=== PATIENT | female | born 1940 | race Caucasian/White ===

== ENCOUNTER 2016-12-07 09:24 | Emergency (ER) | payer MEDICARE, OTHER ==
--- NOTE | 2016-12-07 11:14 | UC ---
UC General HPI - HPI Summary HPI Summary: pt c/o "plugged ears" X 2 weeks. Pt was seen by PCP last week and began oral cefdinir. c/o loose stools beginning 3- 4 days ago, still taking antibiotic, now c/o dizziness, RUQ abdominal pain, nausea and bilateral "plugged" ears. - History of Current Complaint Chief Complaint: UCEar Stated Complaint: VOMITING/SINUS COMPLAINT Time Seen by Provider: 12/07/16 10:53 Hx Obtained From: Patient Onset/Duration: Gradual Onset, Lasting Days Timing: Constant Onset Severity: Mild Current Severity: Mild Pain Location at: RUQ Character: dull , achy Aggravating: food Associated Signs & Symptoms: Positive: Abdominal Pain, Dizziness, Diarrhea, Decreased Oral Intake, Headache - Allergy/Home Medications Allergies/Adverse Reactions: Allergies Allergy/AdvReac Type Severity Reaction Status Date / Time Aspirin Allergy Intermediate RASH AND Verified 12/07/16 10:42 THROAT TIGHTNESS Codeine Allergy Intermediate Rash, Verified 12/07/16 10:42 throat swells Penicillins Allergy Intermediate Rash, Verified 12/07/16 10:42 throat swells Prednisone Allergy Intermediate RASH,TIGHTNESS Verified 12/07/16 10:42 OF THROAT Sulfa Drugs Allergy Intermediate TIGHNESS Verified 12/07/16 10:42 OF THROAT AND RASH Aripiprazole [From Abilify] Allergy GI Upset Verified 12/07/16 10:42 Oxycodone Allergy THROAT Verified 12/07/16 10:42 TIGHTNESS, RASH Tetracycline Allergy GI Upset Verified 12/07/16 10:42 Valproic Acid [From Depakote] Allergy RASH,THIGHTNESS Verified 12/07/16 10:42 OF THROAT Home Medications: Home Medications Cefdinir 300 mg PO SEE INSTRUCTIONS 12/07/16 [History Confirmed 12/07/16] PMH/Surg Hx/FS Hx/Imm Hx Previously Healthy: No - see pmh Endocrine History Of: Reports: Thyroid Disease Denies: Diabetes Cardiovascular History Of: Reports: Cardiac Disorders - [place] 2007, Hypertension Denies: Pacemaker/ICD Respiratory History Of: Denies: COPD, Asthma GI/ History Of: Denies: Gastroesophageal Reflux, Ulcer, Gastrointestinal Bleed, Gall Bladder Disease, Kidney Stones, Diverticulitis, Renal Disease, Urosepsis Neurological History Of: Denies: TIA, CVA, Dementia, Seizures, Migraine Psychological History Of: Reports: Anxiety - ON MEDICATION, Depression Cancer History Of: Denies: Lung Cancer, Colorectal Cancer, Breast Cancer, Prostate Cancer, Cervical Cancer Other History Of: Anticoagulant Therapy Negative For: HIV, Hepatitis B, Hepatitis C - Surgical History Surgical History: Yes Surgery Procedure, Year, and Place: TONSILECTOMY, APPENDECTOMY,HYSTERECTOMY, HEMMORIDECTOMY,ROTATOR CUFF REPAIR,LT KNEE ARTHROSCOPIC,LSP FUSION 2011, b/l carpal tunnel - Family History Known Family History: Positive: Cardiac Disease, Hypertension, Diabetes, Other - FMH of cholecystitis - Social History Alcohol Use: None Substance Use Type: None Smoking Status (MU): Never Smoked Tobacco Have You Smoked in the Last Year: No Review of Systems Constitutional: Fatigue Skin: Negative Eyes: Negative ENT: Ear Ache - bilateral Respiratory: Negative Cardiovascular: Negative Gastrointestinal: Abdominal Pain, Diarrhea Genitourinary: Negative Motor: Negative Neurovascular: Negative Musculoskeletal: Negative Neurological: Headache Psychological: Negative All Other Systems Reviewed And Are Negative: Yes Physical Exam Triage Information Reviewed: Yes Appearance: Ill-Appearing Vital Signs: Initial Vital Signs Temp 99 F 12/07/16 10:27 Pulse 61 12/07/16 10:27 Resp 18 12/07/16 10:27 BP 148/62 12/07/16 10:27 Pulse Ox 100 12/07/16 10:27 Vital Signs Reviewed: Yes ENT Exam: Other ENT: Positive: Other: - left ear cerumen Neck exam: Normal Respiratory Exam: Normal Cardiovascular Exam: Other Cardiovascular: Positive: Murmur:Sys:Grade _?_/ Abdomen Description: Positive: Other: - Positive Wilson's sign Bowel Sounds: Positive: Present Musculoskeletal Exam: Normal Neurological Exam: Normal Psychological Exam: Normal Skin Exam: Normal Course/Dx - Course Course Of Treatment: I discussed with the pt my concern for C-Difficile and cholecystitis. I discussed the need for further evaluation at the closest emergency department. Pt verbalized understanding and agreed to plan of care. - Differential Dx - Multi-Symptom Provider Diagnoses: abdominal pain. cholecystitis. diarrhea. adverse reaction to medication. cerumen impaction left ear - Physician Notifications Discussed Patient Care With: Latha Howe at [facility]. Time Discussed With Above Provider: 11:34 - Latha Howe accepted pt Instructed by Provider To: Other - pt went by private car. Discharge - Discharge Plan Condition: Stable Disposition: TRANS HIGHER LVL OF CARE FAC Patient Education Materials: Abdominal Pain (ED), Acute Diarrhea (ED)
[2016-12-07] MEDS ORDERED: Ondansetron ODT TAB* 4 MG PO ONE (11:20)
[2016-12-07 11:39] VITALS: BP 142/64
== END 2016-12-07 11:35 | disposition left against medical advice (07) ==
LOC: UCCORT 09:24
DX: K81.9 Cholecystitis, unspecified (principal); H61.22 Impacted cerumen, left ear; R19.7 Diarrhea, unspecified; H92.03 Otalgia, bilateral; F41.9 Anxiety disorder, unspecified; F33.8 Other recurrent depressive disorders; I10 Essential (primary) hypertension; I25.2 Old myocardial infarction; E07.9 Disorder of thyroid, unspecified; R10.11 Right upper quadrant pain; Z88.6 Allergy status to analgesic agent; Z88.5 Allergy status to narcotic agent; Z88.0 Allergy status to penicillin; Z88.2 Allergy status to sulfonamides; Z88.8 Allergy status to other drugs, medicaments and biological substances
CPT/HCPCS: 99214; A9270-GY; G0463

== ENCOUNTER 2017-01-06 11:09 | Emergency (ER) | payer MEDICARE ==
[2017-01-06 11:46] VITALS: BP 158/64
--- NOTE | 2017-01-06 11:58 | UC ---
Respiratory Complaint HPI - HPI Summary HPI Summary: CHEST CONGESTION , PRODUCTIVE COUGH X 5 DAYS + FEVER, CHILLS, NASAL CONGESTION , NO SOB - History of Current Complaint Chief Complaint: UCRespiratory Stated Complaint: UPPER RESPIRATORY Time Seen by Provider: 01/06/17 11:48 Hx Obtained From: Patient Hx Last Menstrual Period: years ago. Onset/Duration: Gradual Onset, Lasting Days - 5, Still Present Timing: Constant Severity Initially: Moderate Severity Currently: Moderate Character: Cough: Productive - YELLOW Aggravating Factors: Allergens, Exertion, Deep Breaths Alleviating Factors: Nothing Associated Signs And Symptoms: Positive: Fever, Chills, URI, Nasal Congestion, Sinus Discomfort. Negative: Wheezing, Hemoptysis, Dizziness, Calf Swelling, Edema - Allergies/Home Medications Allergies/Adverse Reactions: Allergies Allergy/AdvReac Type Severity Reaction Status Date / Time Aspirin Allergy Intermediate RASH AND Verified 01/06/17 11:31 THROAT TIGHTNESS Codeine Allergy Intermediate Rash, Verified 01/06/17 11:31 throat swells Penicillins Allergy Intermediate Rash, Verified 01/06/17 11:31 throat swells Prednisone Allergy Intermediate RASH,TIGHTNESS Verified 01/06/17 11:31 OF THROAT Sulfa Drugs Allergy Intermediate TIGHNESS Verified 01/06/17 11:31 OF THROAT AND RASH Aripiprazole [From Abilify] Allergy GI Upset Verified 01/06/17 11:31 Oxycodone Allergy THROAT Verified 01/06/17 11:31 TIGHTNESS, RASH Tetracycline Allergy GI Upset Verified 01/06/17 11:31 Valproic Acid [From Depakote] Allergy RASH,THIGHTNESS Verified 01/06/17 11:31 OF THROAT Home Medications: Home Medications Dry Eye Otc Drops 01/06/17 [History] Mirabegron (NF) [Myrbetriq (NF)] 25 mg PO DAILY 01/06/17 [History Confirmed ] PMH/Surg Hx/FS Hx/Imm Hx Endocrine History Of: Reports: Thyroid Disease Denies: Diabetes Cardiovascular History Of: Reports: Cardiac Disorders - [place] 2006, Hypertension Denies: Pacemaker/ICD Respiratory History Of: Denies: COPD, Asthma GI/ History Of: Denies: Gastroesophageal Reflux, Ulcer, Gastrointestinal Bleed, Gall Bladder Disease, Kidney Stones, Diverticulitis, Renal Disease, Urosepsis Neurological History Of: Denies: TIA, CVA, Dementia, Seizures, Migraine Psychological History Of: Reports: Anxiety - ON MEDICATION, Depression Cancer History Of: Denies: Lung Cancer, Colorectal Cancer, Breast Cancer, Prostate Cancer, Cervical Cancer Other History Of: Anticoagulant Therapy Negative For: HIV, Hepatitis B, Hepatitis C - Surgical History Surgical History: Yes Surgery Procedure, Year, and Place: TONSILECTOMY, APPENDECTOMY,HYSTERECTOMY, HEMMORIDECTOMY,ROTATOR CUFF REPAIR,LT KNEE ARTHROSCOPIC,LSP FUSION 2011, b/l carpal tunnel - Family History Known Family History: Positive: Cardiac Disease, Hypertension, Diabetes, Other - FMH of cholecystitis - Social History Alcohol Use: None Substance Use Type: None Smoking Status (MU): Never Smoked Tobacco Have You Smoked in the Last Year: No - Immunization History Most Recent Influenza Vaccination: FALL 2015 Review of Systems Constitutional: Fever, Chills, Fatigue Skin: Negative Eyes: Negative ENT: Nasal Discharge Respiratory: Cough Cardiovascular: Negative Gastrointestinal: Negative All Other Systems Reviewed And Are Negative: Yes Physical Exam Triage Information Reviewed: Yes Appearance: Well-Appearing, No Pain Distress, Well-Nourished Vital Signs: Initial Vital Signs Temp 97.9 F 01/06/17 11:39 Pulse 58 01/06/17 11:39 Resp 16 01/06/17 11:39 BP 158/64 01/06/17 11:39 Pulse Ox 98 01/06/17 11:39 Vital Signs Reviewed: Yes Eye Exam: Normal Eyes: Positive: Conjunctiva Clear ENT: Positive: Normal ENT inspection, Pharyngeal erythema, Nasal congestion, Nasal drainage, TMs normal Neck exam: Normal Neck: Positive: Supple, Nontender, No Lymphadenopathy Respiratory: Positive: Chest non-tender, Lungs clear, Normal breath sounds Cardiovascular: Positive: RRR, No Murmur, Pulses Normal Skin Exam: Normal UC Diagnostic Evaluation - Laboratory O2 Sat by Pulse Oximetry: 98 Respiratory Course/Dx - Differential Dx/Diagnosis Provider Diagnoses: BRONCHITIS Discharge - Discharge Plan Condition: Stable Disposition: HOME Prescriptions: DOXYcycline CAP(*) [DOXYcycline 100MG CAP(*)] 100 mg PO BID #14 cap Patient Education Materials: Acute Bronchitis (ED) Referrals: Mila Rangel MD [Primary Care Provider] - 7 Days
== END 2017-01-06 12:09 | disposition home or self-care (01) ==
LOC: UCCORT 11:09
DX: J40 Bronchitis, not specified as acute or chronic (principal); Z88.6 Allergy status to analgesic agent; Z88.5 Allergy status to narcotic agent; Z88.2 Allergy status to sulfonamides; I25.2 Old myocardial infarction; I10 Essential (primary) hypertension; F41.9 Anxiety disorder, unspecified
CPT/HCPCS: 99212; G0463

== ENCOUNTER 2017-05-18 16:55 | Emergency (ER) | payer MEDICARE ==
[2017-05-18 17:06] VITALS: BP 132/59
--- NOTE | 2017-05-18 17:09 | UC ---
Upper Extremity HPI - HPI Summary HPI Summary: 76 YEAR OLD FEMALE PRESENTS WITH COMPLAINS OF RIGHT HAND PAIN. - History of Current Complaint Chief Complaint: UCUpperExtremity Stated Complaint: RIGHT HAND INJURY Time Seen by Provider: 05/18/17 17:04 Hx Last Menstrual Period: years ago. - Allergies/Home Medications Allergies/Adverse Reactions: Allergies Allergy/AdvReac Type Severity Reaction Status Date / Time Aspirin Allergy Intermediate RASH AND Verified 05/18/17 17:06 THROAT TIGHTNESS Codeine Allergy Intermediate Rash, Verified 05/18/17 17:06 throat swells Penicillins Allergy Intermediate Rash, Verified 05/18/17 17:06 throat swells Prednisone Allergy Intermediate RASH,TIGHTNESS Verified 05/18/17 17:06 OF THROAT Sulfa Drugs Allergy Intermediate TIGHNESS Verified 05/18/17 17:06 OF THROAT AND RASH Aripiprazole [From Abilify] Allergy GI Upset Verified 05/18/17 17:06 Oxycodone Allergy THROAT Verified 05/18/17 17:06 TIGHTNESS, RASH Tetracycline Allergy GI Upset Verified 05/18/17 17:06 Valproic Acid [From Depakote] Allergy RASH,THIGHTNESS Verified 05/18/17 17:06 OF THROAT PMH/Surg Hx/FS Hx/Imm Hx Previously Healthy: Yes Other History Of: Anticoagulant Therapy Negative For: HIV, Hepatitis B, Hepatitis C - Surgical History Surgical History: Yes Surgery Procedure, Year, and Place: TONSILECTOMY, APPENDECTOMY,HYSTERECTOMY, HEMMORIDECTOMY,ROTATOR CUFF REPAIR,LT KNEE ARTHROSCOPIC,LSP FUSION 2011, b/l carpal tunnel - Family History Known Family History: Positive: Cardiac Disease, Hypertension, Diabetes, Other - FMH of cholecystitis - Social History Alcohol Use: None Substance Use Type: None Smoking Status (MU): Never Smoked Tobacco Have You Smoked in the Last Year: No - Immunization History Most Recent Influenza Vaccination: FALL 2015 Review of Systems Constitutional: Negative Skin: Negative Eyes: Negative ENT: Negative Respiratory: Negative Cardiovascular: Negative Gastrointestinal: Negative Genitourinary: Negative Motor: Negative Neurovascular: Negative Musculoskeletal: Other: - RIGHT THUMB PAIN RIGHT HAND PAIN Neurological: Negative Psychological: Negative All Other Systems Reviewed And Are Negative: Yes Physical Exam Triage Information Reviewed: Yes Vital Signs: Initial Vital Signs Temp 36.7 C 05/18/17 16:59 Pulse 58 05/18/17 16:59 Resp 17 05/18/17 16:59 BP 132/59 05/18/17 16:59 Pulse Ox 99 05/18/17 16:59 Eye Exam: Normal ENT Exam: Normal Dental Exam: Normal Neck exam: Normal Neck: Positive: 1 Respiratory Exam: Normal Cardiovascular Exam: Normal Abdominal Exam: Normal Musculoskeletal: Positive: Other: - RIGHT THUMB PAIN RIGHT HAND PAIN Neurological Exam: Normal Psychological Exam: Normal Skin Exam: Normal Upper Extremity Course/Dx - Differential Dx/Diagnosis Provider Diagnoses: RIGHT THUMB SPRAIN Discharge - Discharge Plan Condition: Stable Disposition: HOME Prescriptions: Diclofenac 1% GEL (NF) [Voltaren 1% GEL (NF)] 2 gm TOPICAL BID PRN #1 tube PRN Reason: Pain Patient Education Materials: De Quervain Disease (ED) Referrals: Ted Dunaway MD [Medical Doctor] - Mila Rangel MD [Primary Care Provider] -
== END 2017-05-18 17:23 | disposition home or self-care (01) ==
LOC: UCCORT 16:55
DX: S63.601A Unspecified sprain of right thumb, initial encounter (principal); X58.XXXA Exposure to other specified factors, initial encounter; Y93.9 Activity, unspecified; Y92.9 Unspecified place or not applicable; Z88.6 Allergy status to analgesic agent; Z88.5 Allergy status to narcotic agent; Z88.0 Allergy status to penicillin; Z88.2 Allergy status to sulfonamides; Z88.8 Allergy status to other drugs, medicaments and biological substances; Z79.01 Long term (current) use of anticoagulants
CPT/HCPCS: 99212; G0463

== ENCOUNTER 2018-05-06 15:09 | Emergency (ER) | payer MEDICARE ==
--- OUTSIDE RECORDS SUMMARY | 2018-05-06 16:12 | XMS REPORT ---
:1940 External Reference #:[id number] Author Organization [facility] Address [address], [address] [place] [address] Phone [phone] Care Team Providers Name Role Phone Mila Rangel M.D. Care Team Information Emergency Management Specialist Unavailable Mila Rangel M.D. Primary Care Physician Unavailable Payers Type Date Identification Numbers Payment Provider Subscriber Commercial Policy Number: [id number] Today Options Medicare Ana Snider PayID: [id number] [address] [address] [place] [address] Commercial Expires: 2016 Policy Number: [facility] Ana Snider [id number] Medicare PayID: [id number] [address] [address] [place] [address] Medicare Primary Expires: 2016 Policy Number: Medicare Ana Snider [id number] Group Name: Medicare [address] PayID: [id number] [place] [address] Commercial Expires: 2016 Policy Number: DO Not Use-Add Josh Snider [id number] PayID: [id number] [address] [place] [address] Medigap Part B Expires: 2017 Policy Number: [id number] simon Snider PayID: [id number] [address] [place] [address] Problems Date Description Provider Status Onset: 11/28/2014 Essential hypertension Mya Alana, RPAC Active Onset: 11/28/2014 Hyperlipidemia Mya Alana, RPAC Active Onset: 11/28/2014 Hypothyroidism Mya Alana RPAC Active Onset: 11/30/2014 Degenerative joint disease Mya Warner [facility] Active involving multiple joints Onset: 11/28/2014 Coronary arteriosclerosis Mya Warner [facility] Active Onset: 11/28/2014 Anxiety disorder Mya Warner [facility] Active Onset: 04/19/2015 H/O Spinal surgery Zayda Brar MD Active Onset: 04/19/2015 Sjogren's syndrome Zayda Brar MD Active Onset: 12/04/2015 Carpal tunnel syndrome SOFIA Posadas Active Onset: 05/18/2016 Chronic neck pain TONIO Mckinnon Active Note: Document: 05/14/16 - Consult Orthopaedic Onset: 07/16/2016 Fibromyalgia Mila Rangel M.D. Active Onset: 07/16/2016 Urinary incontinence Mila Rangel M.D. Active Onset: 11/17/2017 Urge incontinence of urine Bill Bolaños M.D. Active Onset: 12/15/2017 Nocturia Bill Bolaños M.D. Active Onset: 03/04/2016 Sprain of wrist Trevor Palmer M.D. Resolved Resolved: 04/08/2018 Family History Date Family Member(s) Problem(s) Comments General Breast Cancer on maternal side Father CAD CABG x6 Father due to Cancer () Mother Cancer MOTHER Mother CAD Onset: (age 62 Years) First Brother Myocardial Infarction Onset: (age 61 Years) First Sister Myocardial Infarction CABG x4 First Sister due to Cancer, () Brain Social History Type Date Description Comments Lives With Alone Diet Patient follows no dietary restrictions Occupation Retired Cigarette Use Never Smoked Cigarettes ETOH Use Denies alcohol use Smoking Patient does not smoke Recreational Drug Use Denies Drug Use Daily Caffeine Does Not Consume Caffeine Warp Preparer Name None Allergies, Adverse Reactions, Alerts Date Description Reaction Status Severity Comments Depakote active Codeine active 11/28/2014 Sulfa Antibiotics Urticaria active 11/13/2010 Penicillin active Lyrica active Hydrocodone no effect on pain active 11/13/2010 Prednisone active Aspirin rash active Meloxicam active 11/28/2014 Abilify Urticaria active 11/28/2014 Hydrocortisone active 11/28/2014 Tetracycline Urticaria active 07/17/2010 No Known Drug Allergy inactive Medications Medication Date Status Form Strength Qnty SIG Indications Ordering Provider Naproxen 04/08 Active Tablets 500mg 20tab take one S93.602A Jenniferleigh s tablet Clune [employer] by mouth twice a day Triamcinolone 03/19 Active Ointment 0.1% 15gm apply to S40.861A Mila Rangel Acetonide lesions M.D. on hands twice a day Myrbetriq 12/15 Active Tablets ER 50mg 90tab 1 by R32 Mahmoud 24HR s mouth Mami, M.D. every day Acetaminophen 10/23 Active Tablets 500mg 100ta 2 caps M54.5 Mila Rangel Extra Strength bs by mouth M.D. q8 as needed pain mdd=3g Baclofen 07/23 Active Tablets 10mg 30tab take 1 M62.838 Mila Rangel s tablet M.D. by mouth twice a day as needed Levothyroxine 10/16 Active Tablets 100mcg 90tab take one Mila Rangel Sodium s tablet M.D. by mouth every day Duloxetine HCL 07/[address] 60mg 180ca Take One M79.7 Mila Rangel Part ps Capsule M.D. By Mouth Twice A Day Lisinopril-Manteca 10/01 Active Tablets 20-12.5mg 180ta Take Two Mila Rangel chlorothiazide bs Tablets M.D. By Mouth Every Day Trazodone HCL 03/16 Active Tablets 150mg 90tab Take One F33.2 Mila Rangel s Tablet M.D. By Mouth AT Bedtime Atorvastatin 11/28 Active Tablets 40mg 90tab Take One Mila Rangel Calcium s Tablet M.D. By Mouth Every Day Dry Eye Drops Active 3 drops Unknown / qd Vitamin C Immune Active Chewtabs 1000mg 3 daily Unknown Health (winter only) Multi For Her Active Capsules 1 a day Unknown / Fluticasone Active Suspension 50mcg/Act 16uni [place] 2 Mila Rangel Propionate ts Sprays M.D. Intranas ally Every Day Clopidogrel Active Tablets 75mg 90tab Take One Mila Rangel Bisulfate s Tablet M.D. By Mouth Every Day Gabapentin Active Capsules 300mg 270ca Take One Mila Rangel ps Capsule M.D. By Mouth Three Times A Day Famotidine Active Tablets 20mg 90tab Take One Mila Rangel s Tablet M.D. By Mouth Every Day Ibuprofen 10/23 Hx Capsules 200mg as Mila Rangel, needed M.D. - 10/23 Nitro Stat 12/16 Hx .0.4 i prn Mila Rangel, for M.D. - chest 12/16 pain Oxybutynin 12/16 Hx Tablets 5mg 60tab take one Mila Rangel s tablet M.D. - by mouth 12/16 qd Ondansetron 12/16 Hx Tablets 4mg 30tab 1 by Mila Rangel Dispers s mouth M.D. - every 4 12/30 hour needed Metronidazole 12/16 Hx Tablets 500mg 42tab 1 by Mila Rangel, s mouth M.D. - three 12/30 times a day Flonase 12/16 Hx Suspension 50mcg/Act 16uni 2 sprays Mila Rangel, ts each M.D. - nare 02/06 Lidoderm 12/16 Hx Patches 5% 30uni apply M54.5 Mila Rangel ts patch to M.D. - lower 02/06 every 24 hours, max 1 patch per 24h period Cefdinir 12/02 Hx Capsules 300mg 20cap 1 by J01.90 Kisha Ervin, s mouth PNP-BC, [employer], - twice a Ibclc Myrbetriq 11/19 Hx Tablets ER 25mg 90tab take one Lincoln Khan 24HR s tablet Mami, M.D. - by mouth 12/15 every day Tolterodine 11/04 Hx Caps ER 4mg 30cap 1 by R32 Mila Rangel Tartrate 24HR s mouth M.D. - every Clonazepam 10/16 Hx Tablets 0.25mg take 1 F41.9 Mila Rangel Dispers tab by Ozzy - mouth 10/16 twice a day referenc e #: [id number] Clonazepam 10/16 Hx Tablets 0.5mg take /2 F41.9 by mouth M.D. - Q daily 12/16 Tolterodine 10/16 Hx Caps ER 2mg 30cap 1 tab PO R32 Mila Rangel Tartrate ER 24HR s Q daily M.D. 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 10/16 Referenc e #: [id number] Physical Therapy 04/19 Hx Please Zayda Janelle MD - treat 12/04 neck 2016 pain, right shoulder pain, and upper and lower back pain. Trazodone HCL 03/02 Hx Tablets 100mg 30tab one and 296.33 Jo /2015 s a regalado at Ozzy Becker - bedtime. 03/16 Oxybutynin 01/18 Hx Tablets ER 5mg 90tab take 1 Jamari Keys ER /2014 24HR s tablet MoyDAnette - daily 07/16 Lisinopril/Manteca 11/28 Hx Tablets 20-12.5 90tab 1 by Jo chlorothiazide s mouth Ozzy Becker - every Fluoxetine HCL 11/28 Hx Capsules 20mg 30cap 1 by Rosita /2014 s mouth MD Jo - every Clonazepam 11/28 Hx Tablets 0.5mg 60tab 1 tabs Jo s by mouth Ozzy Becker - twice a needed.. ...Refer ence #: [id number] Lidocaine 11/28 Hx Patches 5% 90uni one ts patch to Ozzy Becker - lower 12/25 every 12 hours as needed Duloxetine HCL 11/28 Hx Caps 30mg 360ca 2 caps Mila Rangel, Part ps by mouth Ozzy - twice a Levothyroxine Hx Tablets 100mcg 1 po qd Unknown Sodium /0000 - 06/11 Clonazepam Hx Tablets 1mg 1 po tid Unknown /0000 prn - 01/22 Vesicare Hx Tablets 5mg 30tab 1 po qd Unknown /0000 s - 01/11 Nitrostat Hx Tablets 0.4mg 25tab 1 tab sl Unknown / Sub s q 5 min - x3 chest 07/16 pain Tramadol HCL Hx Tablets 50mg 1 by Unknown /0000 mouth as - needed 04/19 for pain Q 4 - 6 HRS Methylprednisolo 0000 Hx Tablets 4mg 21tab 1 PO qd Jo ne / s Ozzy Becker - 12/11 Vitamin C 00/00 Hx Unknown /0000 - 12/16 Mucus Relief 00 Hx Tablets 400mg 2 po qd Unknown /0000 - 04/22 Biotene Dry Hx Liquid swish Unknown Mouth /0000 and spit - out four 12/25 times day as needed dry mouth Vitamin E Hx Capsules 400Unit 1 by Unknown /0000 mouth - every Methlprednisolon Hx Take 6 Unknown e /0000 pills in - Am on 12/25 day then 5 pills on day2, etc until gone Baclofen Hx Tablets 10mg take 1/2 Unknown /0000 tab 3 - times a Metaxalone Hx Tablets 800mg 90tab 1 three Mila Rangel, /0000 s times a M.D. - day 07/16 Vitamin D-3 Hx Capsules 1000Unit 1 by Unknown /0000 mouth - every Fluzone Hx Linda 0.5ml Inject Unknown High-Dose /0000 Intramus - cularly 07/16 Tolterodine Hx Caps ER 4mg Take One Unknown Tartrate ER /0000 24HR Capsule - By Mouth 11/19 Day Methylprednisolo Hx Tablets 32mg for use Nirav, ne /0000 w kate Patel MD - 04/08 Medications Administered in Office Medication Date Status Form Strength Qnty SIG Indications Ordering Provider PPD Administered Injection Jeanette Keys M.D. Immunizations CPT Code Status Date Vaccine Lot # [id number] Given 07/02/2016 Influenza Vaccine (Fluzone) Age 3 And Older [id number] Given 08/03/2015 Influenza Vaccine (Fluzone) Age 3 And Older [id number] Given 05/02/2015 Pneumococcal Conjugate Vaccine 13 Valent For [id number] Intramuscular Use 05941 Given 06/23/2011 Pneumovax Injection Vital Signs Date Vital Result Comment 04/22/2018 BP Systolic Sitting Left Arm 124 mmHg BP Diastolic Sitting Left Arm 74 mmHg Body Temperature 100.0 F Heart Rate 72 /min Height 64 inches 5'4" Weight 187.25 lb BMI (Body Mass Index) 32.1 kg/m2 BSA (Body Surface Area) 1.90 m2 [place] body weight in kilograms 54 04/08/2018 BP Systolic Sitting Left Arm 128 mmHg BP Diastolic Sitting Left Arm 76 mmHg Heart Rate 72 /min Respiratory Rate 18 /min Height 63 inches 5'3" Weight 185.00 lb BMI (Body Mass Index) 32.8 kg/m2 BSA (Body Surface Area) 1.87 m2 [place] body weight in kilograms 52 03/19/2018 BP Systolic 136 mmHg BP Diastolic 82 mmHg Body Temperature 98.5 F Heart Rate 72 /min Respiratory Rate 18 /min Weight 184.00 lb O2 % BldC Oximetry 95 % 12/15/2017 BP Systolic 134 mmHg BP Diastolic 67 mmHg 12/15/2017 BP Systolic 167 mmHg BP Diastolic 83 mmHg Body Temperature 98.0 F Heart Rate 57 /min Respiratory Rate 14 /min Height 63 inches 5'3" Weight 184.00 lb BMI (Body Mass Index) 32.6 kg/m2 BSA (Body Surface Area) 1.87 m2 [place] body weight in kilograms 52 O2 % BldC Oximetry 92 % Pain Level 0 11/17/2017 BP Systolic 150 mmHg BP Diastolic 77 mmHg Body Temperature 97.9 F Heart Rate 71 /min Respiratory Rate 17 /min Height 63 inches 5'3" Weight 187.12 lb BMI (Body Mass Index) 33.1 kg/m2 BSA (Body Surface Area) 1.88 m2 [place] body weight in kilograms 52 O2 % BldC Oximetry 94 % Pain Level 10 Hip/leg 10/23/2017 BP Systolic 144 mmHg BP Diastolic 84 mmHg Body Temperature 98.5 F Heart Rate 78 /min Height 63 inches 5'3" Weight 184.00 lb BMI (Body Mass Index) 32.6 kg/m2 BSA (Body Surface Area) 1.87 m2 [place] body weight in kilograms 52 O2 % BldC Oximetry 98 % 09/15/2017 BP Systolic Sitting Left Arm 128 mmHg BP Diastolic Sitting Left Arm 66 mmHg Body Temperature 98.5 F Heart Rate 62 /min Height 63 inches 5'3" Weight 187.12 lb BMI (Body Mass Index) 33.1 kg/m2 BSA (Body Surface Area) 1.88 m2 [place] body weight in kilograms 52 O2 % BldC Oximetry 96 % 07/23/2017 BP Systolic 152 mmHg BP Diastolic 88 mmHg Body Temperature 96.8 F Heart Rate 59 /min Height 63 inches 5'3" Weight 189.00 lb BMI (Body Mass Index) 33.5 kg/m2 BSA (Body Surface Area) 1.89 m2 [place] body weight in kilograms 52 O2 % BldC Oximetry 98 % 04/17/2017 BP Systolic 107 mmHg BP Diastolic 79 mmHg Body Temperature 98.2 F Heart Rate 66 /min Height 63 inches 5'3" Weight 192.00 lb BMI (Body Mass Index) 34.0 kg/m2 BSA (Body Surface Area) 1.90 m2 [place] body weight in kilograms 52 02/06/2017 BP Systolic Sitting Left Arm 120 mmHg BP Diastolic Sitting Left Arm 64 mmHg Body Temperature 99.2 F Heart Rate 63 /min Height 63 inches 5'3" Weight 186.12 lb BMI (Body Mass Index) 33.0 kg/m2 BSA (Body Surface Area) 1.88 m2 O2 % BldC Oximetry 97 % 01/13/2017 BP Systolic Sitting Left Arm 150 mmHg BP Diastolic Sitting Left Arm 92 mmHg Body Temperature 98.7 F Heart Rate 64 /min Respiratory Rate 24 /min Height 63 inches 5'3" Weight 188.25 lb BMI (Body Mass Index) 33.3 kg/m2 BSA (Body Surface Area) 1.88 m2 12/16/2016 BP Systolic Sitting Right Arm 124 mmHg BP Diastolic Sitting Right Arm 76 mmHg Heart Rate 80 /min Height 63 inches 5'3" Weight 187.00 lb BMI (Body Mass Index) 33.1 kg/m2 BSA (Body Surface Area) 1.88 m2 [place] body weight in kilograms 52 12/02/2016 BP Systolic 156 mmHg BP Diastolic 68 mmHg Body Temperature 98.1 F Heart Rate 64 /min Respiratory Rate 18 /min Height 64 inches 5'4" Weight 188.00 lb BMI (Body Mass Index) 32.3 kg/m2 BSA (Body Surface Area) 1.91 m2 10/16/2016 BP Systolic 118 mmHg BP Diastolic 58 mmHg Body Temperature 98.0 F Heart Rate 54 /min Respiratory Rate 20 /min Height 64 inches 5'4" Weight 186.00 lb BMI (Body Mass Index) 31.9 kg/m2 BSA (Body Surface Area) 1.90 m2 [place] body weight in kilograms 54 O2 % BldC Oximetry 97 % 09/24/2016 BP Systolic Sitting Left Arm 118 mmHg BP Diastolic Sitting Left Arm 72 mmHg Heart Rate 68 /min Respiratory Rate 18 /min Height 64 inches 5'4" Weight 186.38 lb BMI (Body Mass Index) 32.0 kg/m2 BSA (Body Surface Area) 1.90 m2 [place] body weight in kilograms 54 08/20/2016 BP Systolic Sitting Left Arm 110 mmHg BP Diastolic Sitting Left Arm 58 mmHg Body Temperature 98.6 F Heart Rate 60 /min Respiratory Rate 16 /min Height 65 inches 5'5" Weight 185.00 lb BMI (Body Mass Index) 30.8 kg/m2 BSA (Body Surface Area) 1.91 m2 07/16/2016 BP Systolic 118 mmHg BP Diastolic 64 mmHg Height 65 inches 5'5" Weight 190.38 lb BMI (Body Mass Index) 31.7 kg/m2 BSA (Body Surface Area) 1.94 m2 [place] body weight in kilograms 57 04/23/2016 BP Systolic 128 mmHg BP Diastolic 74 mmHg Body Temperature 98.4 F Heart Rate 78 /min Respiratory Rate 18 /min Height 64 inches 5'4" Weight 190.00 lb BMI (Body Mass Index) 32.6 kg/m2 BSA (Body Surface Area) 1.91 m2 [place] body weight in kilograms 54 02/20/2016 BP Systolic Sitting Left Arm 122 mmHg BP Diastolic Sitting Left Arm 72 mmHg Heart Rate 76 /min Respiratory Rate 18 /min Height 64 inches 5'4" Weight 190.00 lb BMI (Body Mass Index) 32.6 kg/m2 BSA (Body Surface Area) 1.91 m2 12/31/2015 BP Systolic Sitting Right Arm 120 mmHg BP Diastolic Sitting Right Arm 68 mmHg Heart Rate 64 /min Respiratory Rate 20 /min Height 64 inches 5'4" Weight 180.00 lb BMI (Body Mass Index) 30.9 kg/m2 BSA (Body Surface Area) 1.87 m2 12/26/2015 BP Systolic Sitting Left Arm 130 mmHg BP Diastolic Sitting Left Arm 84 mmHg Height 64 inches 5'4" Weight 185.00 lb BMI (Body Mass Index) 31.8 kg/m2 BSA (Body Surface Area) 1.89 m2 12/12/2015 BP Systolic 128 mmHg BP Diastolic 82 mmHg Heart Rate 60 /min Respiratory Rate 21 /min Weight 182.50 lb 12/04/2015 BP Systolic Sitting Left Arm 126 mmHg BP Diastolic Sitting Left Arm 78 mmHg Heart Rate 66 /min Respiratory Rate 20 /min Height 65 inches 5'5" Weight 183.00 lb BMI (Body Mass Index) 30.4 kg/m2 BSA (Body Surface Area) 1.90 m2 10/22/2015 BP Systolic Sitting Left Arm 138 mmHg BP Diastolic Sitting Left Arm 70 mmHg Heart Rate 78 /min Respiratory Rate 20 /min Height 65 inches 5'5" Weight 176.00 lb BMI (Body Mass Index) 29.3 kg/m2 BSA (Body Surface Area) 1.87 m2 10/01/2015 BP Systolic Sitting Left Arm 138 mmHg BP Diastolic Sitting Left Arm 72 mmHg Heart Rate 64 /min Respiratory Rate 19 /min Height 65 inches 5'5" Weight 176.00 lb BMI (Body Mass Index) 29.3 kg/m2 BSA (Body Surface Area) 1.87 m2 08/03/2015 BP Systolic Sitting Left Arm 122 mmHg BP Diastolic Sitting Left Arm 66 mmHg Heart Rate 60 /min Respiratory Rate 20 /min Height 65 inches 5'5" Weight 175.00 lb BMI (Body Mass Index) 29.1 kg/m2 BSA (Body Surface Area) 1.87 m2 06/06/2015 BP Systolic Sitting Left Arm 122 mmHg BP Diastolic Sitting Left Arm 66 mmHg Heart Rate 68 /min Respiratory Rate 19 /min Height 65 inches 5'5" Weight 180.00 lb BMI (Body Mass Index) 30.0 kg/m2 BSA (Body Surface Area) 1.89 m2 05/02/2015 BP Systolic Sitting Left Arm 112 mmHg BP Diastolic Sitting Left Arm 62 mmHg Heart Rate 62 /min Respiratory Rate 19 /min Height 66 inches 5'6" Weight 181.00 lb BMI (Body Mass Index) 29.2 kg/m2 BSA (Body Surface Area) 1.92 m2 04/19/2015 BP Systolic 118 mmHg BP Diastolic 72 mmHg Body Temperature 98.4 F Height 65 inches 5'5" Weight 186.00 lb BMI (Body Mass Index) 30.9 kg/m2 BSA (Body Surface Area) 1.92 m2 03/16/2015 BP Systolic Sitting Left Arm 128 mmHg BP Diastolic Sitting Left Arm 64 mmHg Heart Rate 60 /min Respiratory Rate 19 /min Height 66 inches 5'6" Weight 188.00 lb BMI (Body Mass Index) 30.3 kg/m2 BSA (Body Surface Area) 1.95 m2 03/02/2015 BP Systolic Sitting Left Arm 112 mmHg BP Diastolic Sitting Left Arm 68 mmHg Heart Rate 60 /min Respiratory Rate 19 /min Height 65 inches 5'5" Weight 189.00 lb BMI (Body Mass Index) 31.4 kg/m2 BSA (Body Surface Area) 1.93 m2 01/18/2015 BP Systolic 128 mmHg BP Diastolic 76 mmHg Body Temperature 97.6 F Weight 196.00 lb 01/10/2015 BP Systolic 118 mmHg BP Diastolic 72 mmHg Body Temperature 98.1 F Weight 194.00 lb 12/04/2014 BP Systolic 162 mmHg BP Diastolic 74 mmHg Height 63.5 inches 5'3.50" Weight 198.00 lb 11/28/2014 BP Systolic 134 mmHg BP Diastolic 82 mmHg Heart Rate 68 /min Height 64 inches 5'4" Weight 195.00 lb 01/22/2011 Height 64 inches 5'4" Weight 218.00 lb 11/13/2010 BP Systolic Sitting Right Arm 128 mmHg BP Diastolic Sitting Right Arm 70 mmHg Heart Rate 63 /min Respiratory Rate 18 /min Weight 214.00 lb 06/21/2010 Height 62 inches 5'2" Weight 182.00 lb BMI (Body Mass Index) 33.3 kg/m2 04/24/2010 Height 64 inches 5'4" Weight 212.00 lb Results Test Date Test Result H/L Range Note Laboratory test finding 12/28/2017 BUN 22 mg/dL High 7-18 1, 2 Creatinine 1.1 mg/dL 0.6-1.3 1, 3 Ua RFX Micro & Culture II 12/15/2017 Urine Color YELLOW Yellow 4 Urine Clarity CLEAR Clear 4 Urine Glucose - Dipstick NEGATIVE mg/dL Negative 4 Urine Bilirubin - Dipstick NEGATIVE Negative 4 Urine Ketone NEGATIVE mg/dL Negative 4 Urine Specific [place] 1.010 1.010-1.030 4 Urine Blood NEGATIVE Negative 4 Urine PH 6.0 Low 6.5-7.5 4 Urine Protein - Dipstick NEGATIVE mg/dL Negative 4 Urine Urobilinogen - Dipstick 0.2 E.U./dL 0.2-1.0 4 Urine Nitrite - Dipstick NEGATIVE Negative 4 Urine Leuk Esterase NEGATIVE Negative 4 Source: URINE, CLEAN CAT <SEE NOTE> 4, 5 LDL Cholesterol Profile 10/23/2017 Cholesterol 153 mg/dL <200 6, 7 Triglycerides 82 mg/dL <150 6, 8 HDL Cholesterol 88 mg/dL >40 6, 9 LDL-Cholesterol 49 mg/dL < 100 6, 10 Reflex add FT3? Y 6 Reflex add FT4? Y 6 TSH Reflex FT4 And/Or FT3 10/23/2017 Thyroid Stim Hormone 1.35 uIU/mL 0.30-4.20 6 Reflex add FT3? Y 6 Reflex add FT4? Y 6 Comprehensive Metabolic Panel 10/23/2017 Glucose 154 mg/dL High 74-106 6 BUN 15 mg/dL 7-18 6 Creatinine 1.1 mg/dL 0.6-1.3 6 Glom Filtration Rate, Estimate 51 mL/min >60 6 If >60 mL/min >60 6, 11 BUN/Creat 13.6 ratio 6 Sodium 134 mmol/L Low 136-145 6 Potassium 3.1 mmol/L Low 3.5-5.1 6 Chloride 100 mmol/L 98-107 6 Carbon Dioxide 25 mmol/L 21-32 6 Anion Gap 9 mEq/L 8-16 6 Calcium 9.4 mg/dL 8.5-10.1 6 Total Protein 7.1 g/dL 6.4-8.2 6 Albumin 3.9 g/dL 3.4-5.0 6 Globulin 3.2 g/dL 1.9-4.3 6 Alb/Glob 1.2 ratio 6 Bilirubin,Total 0.4 mg/dL 0.2-1.0 6 Sgot/Ast 28 U/L 15-37 6 SGPT/Alt 34 U/L 12-78 6 Alkaline Phosphatase 71 U/L 45-117 6 Reflex add FT3? Y 6 Reflex add FT4? Y 6 LDL Cholesterol Profile 06/06/2017 Cholesterol 149 mg/dL <200 12, 13 Triglycerides 162 mg/dL High <150 12, 14 HDL Cholesterol 53 mg/dL >40 12, 15 LDL-Cholesterol 64 mg/dL < 100 12, 16 Laboratory test finding 06/06/2017 Troponin-I < 0.015 ng/mL 12, 17 Glycohemoglobin A1c 06/06/2017 Glycohemoglobin (A1c) 6.0 % 4.2-6.3 12, 18 eAG 126 mg/dL 12 Laboratory test finding 06/05/2017 Troponin-I 0.021 ng/mL 12, 19 CBS W/Automated Diff 06/05/2017 White Blood Count 6.9 K/uL 3.1-10.7 20 Red Blood Count 3.99 M/uL 3.90-5.40 20 Hemoglobin 12.4 gm/dL 11.6-15.8 20 Hematocrit 35.3 % Low 36.0-46.1 20 Mean Cell Volume 88.5 fl 80.9-99.0 20 Mean Corpuscular HGB 31.1 pg 25.9-32.7 20 Mean Corpuscular HGB Conc 35.1 g/dL High 30.8-34.3 20 Platelet Count 274 K/uL 150-400 20 Red Cell Distri Width SD 41.3 fl 3-47 20 Red Cell Distri Width %CV 13.1 % 11.7-14.4 20 Mean Platelet Volume 8.8 fL Low 8.9-12.4 20 Neut% 62.5 % 40.4-72.8 20 Lymph % 25.5 % 20.0-42.0 20 [place] % 8.1 % 4.3-13.2 20 Eo% 3.5 % 0.0-6.6 20 Bas% 0.4 % 0.0-1.1 20 Neut# 4.32 K/uL 1.8-7.0 20 Lymph # 1.76 K/uL 1.0-4.0 20 [place] # 0.56 K/uL 0.3-0.9 20 Eos # 0.24 K/uL 0.0-0.5 20 Baso # 0.03 K/uL 0.0-0.1 20 TSH Reflex FT4 And/Or FT3 01/13/2017 Thyroid Stim Hormone 3.01 uIU/mL 0.30-4.20 21 Reflex add FT3? Y 21 Reflex add FT4? Y 21 Laboratory test 12/16/2016 [place] Antibodies, >300.0 AU/mL Immune >29.9 22, 23 finding Igg Rubella Igg 12/16/2016 Rubella IgG Antibody Reactive Reactive 22 Antibody Rubella IgG Iu/ml 317.7 IU/mL >=10.0 22, 24 Basic Metabolic Panel 2016 Glucose 103 mg/dL 74-106 25 BUN 13 mg/dL 7-18 25 Creatinine 1.1 mg/dL 0.6-1.3 25 Glom Filtration Rate, Estimate 51 mL/min >60 25 If >60 mL/min >60 25, 26 BUN/Creat 11.8 ratio 25 Sodium 141 mmol/L 136-145 25 Potassium 4.0 mmol/L 3.5-5.1 25 Chloride 111 mmol/L High 98-107 25 Carbon Dioxide 18 mmol/L Low 21-32 25 Anion Gap 12 mEq/L 8-16 25 Calcium 8.9 mg/dL 8.5-10.1 25 CBS W/Automated Diff 2016 White Blood Count 9.3 K/uL 3.1-10.7 25 Red Blood Count 4.41 M/uL 3.90-5.40 25 Hemoglobin 13.3 gm/dL 11.6-15.8 25 Hematocrit 39.3 % 36.0-46.1 25 Mean Cell Volume 89.1 fl 80.9-99.0 25 Mean Corpuscular HGB 30.2 pg 25.9-32.7 25 Mean Corpuscular HGB Conc 33.8 g/dL 30.8-34.3 25 Platelet Count 253 K/uL 150-400 25 Red Cell Distri Width SD 45.2 fl 3-47 25 Red Cell Distri Width %CV 14.2 % 11.7-14.4 25 Mean Platelet Volume 9.2 fL 8.9-12.4 25 Neut% 72.8 % 40.4-72.8 25 Lymph % 18.2 % Low 20.0-42.0 25 [place] % 7.4 % 4.3-13.2 25 Eo% 1.4 % 0.0-6.6 25 Bas% 0.2 % 0.0-1.1 25 Neut# 6.78 K/uL 1.8-7.0 25 Lymph # 1.70 K/uL 1.0-4.0 25 [place] # 0.69 K/uL 0.3-0.9 25 Eos # 0.13 K/uL 0.0-0.5 25 Baso # 0.02 K/uL 0.0-0.1 25 Basic Metabolic Panel 12/08/2016 Glucose 110 mg/dL High 74-106 25 BUN 11 mg/dL 7-18 25 Creatinine 0.9 mg/dL 0.6-1.3 25 Glom Filtration Rate, Estimate >60 mL/min >60 25 If >60 mL/min >60 25, 27 BUN/Creat 12.2 ratio 25 Sodium 135 mmol/L Low 136-145 25 Potassium 4.1 mmol/L 3.5-5.1 25 Chloride 105 mmol/L 98-107 25 Carbon Dioxide 21 mmol/L 21-32 25 Anion Gap 9 mEq/L 8-16 25 Calcium 8.4 mg/dL Low 8.5-10.1 25 CBS W/Automated Diff 12/08/2016 White Blood Count 16.4 K/uL High 3.1-10.7 25 Red Blood Count 4.38 M/uL 3.90-5.40 25 Hemoglobin 13.4 gm/dL 11.6-15.8 25 Hematocrit 38.4 % 36.0-46.1 25 Mean Cell Volume 87.7 fl 80.9-99.0 25 Mean Corpuscular HGB 30.6 pg 25.9-32.7 25 Mean Corpuscular HGB Conc 34.9 g/dL High 30.8-34.3 25 Platelet Count 222 K/uL 150-400 25 Red Cell Distri Width SD 43.8 fl 3-47 25 Red Cell Distri Width %CV 13.9 % 11.7-14.4 25 Mean Platelet Volume 9.0 fL 8.9-12.4 25 Neut% 85.5 % High 40.4-72.8 25 Lymph % 7.3 % Low 20.0-42.0 25 [place] % 6.9 % 4.3-13.2 25 Eo% 0.2 % 0.0-6.6 25 Bas% 0.1 % 0.0-1.1 25 Neut# 14.05 K/uL High 1.8-7.0 25 Lymph # 1.20 K/uL 1.0-4.0 25 [place] # 1.14 K/uL High 0.3-0.9 25 Eos # 0.04 K/uL 0.0-0.5 25 Baso # 0.01 K/uL 0.0-0.1 25 Laboratory test 12/07/2016 Magnesium 1.9 mg/dL 1.8-2.4 25 finding Laboratory test 12/07/2016 C. Difficile Toxin NEGATIVE FOR C. 28, 29 finding A/B <SEE NOTE> Ua Routine 12/07/2016 Urine Color YELLOW Yellow 28 Urine Clarity CLEAR Clear 28 Urine Glucose - Dipstick NEGATIVE mg/dL Negative 28 Urine Bilirubin - Dipstick NEGATIVE Negative 28 Urine Ketone 15 mg/dL High Negative 28 Urine Specific [place] 1.025 1.010-1.030 28 Urine Blood SMALL Negative 28 Urine PH 6.0 Low 6.5-7.5 28 Urine Protein - Dipstick 30 mg/dL High Negative 28 Urine Urobilinogen - Dipstick 0.2 E.U./dL 0.2-1.0 28 Urine Nitrite - Dipstick NEGATIVE Negative 28 Urine Leuk Esterase NEGATIVE Negative 28 Urine RBC 2-5 rbc/hpf 0-2 28 Urine WBC 0-2 wbc/hpf 0-7 28 Urine Epithelial Cells MANY /lpf None Seen 28, 30 Urine Bacteria VERY FEW None Seen 28 Urine Coarse Granular Cast 0-2 #/lpf None Seen 28 Urine Mucus LARGE None Seen 28 Urine Amorph Sediment SMALL Negative 28 Source: URINE, CLEAN CAT <SEE NOTE> 28, 31 Aot Request 12/07/2016 Aot Request Test(s) added 32, 33 Tests to be added: magnesium 32 Basic Metabolic Panel 12/07/2016 Glucose 145 mg/dL High 74-106 32 BUN 13 mg/dL 7-18 32 Creatinine 1.0 mg/dL 0.6-1.3 32 Glom Filtration Rate, Estimate 57 mL/min >60 32 If >60 mL/min >60 32, 34 BUN/Creat 13.0 ratio 32 Sodium 130 mmol/L Low 136-145 32 Potassium 3.3 mmol/L Low 3.5-5.1 32 Chloride 97 mmol/L Low 98-107 32 Carbon Dioxide 23 mmol/L 21-32 32 Anion Gap 10 mEq/L 8-16 32 Calcium 8.2 mg/dL Low 8.5-10.1 32 Urine Culture 11/14/2016 Urine Culture NO GROWTH: FINAL <SEE NOTE> 35, 36 Free T3 10/16/2016 Free T3 2.45 pg/mL 2.18-3.98 Reflex add FT3? Y Reflex add FT4? Y Free T4 10/16/2016 Free T4 1.32 ng/dL 0.76-1.46 Reflex add FT3? Y Reflex add FT4? Y TSH Reflex FT4 And/Or FT3 10/16/2016 Thyroid Stim Hormone 0.16 uIU/mL Low 0.30-4.20 Reflex add FT3? Y Reflex add FT4? Y LDL Cholesterol Profile 10/16/2016 Cholesterol 156 mg/dL <200 37 Triglycerides 106 mg/dL <150 38 HDL Cholesterol 57 mg/dL >40 39 LDL-Cholesterol 78 mg/dL < 100 40 Reflex add FT3? Y Reflex add FT4? Y Comprehensive Metabolic Panel 10/16/2016 Glucose 92 mg/dL 74-106 BUN 20 mg/dL High 7-18 Creatinine 1.1 mg/dL 0.6-1.3 Glom Filtration Rate, Estimate 51 mL/min >60 If >60 mL/min >60 41 BUN/Creat 18.1 ratio Sodium 140 mmol/L 136-145 Potassium 3.5 mmol/L 3.5-5.1 Chloride 104 mmol/L 98-107 Carbon Dioxide 27 mmol/L 21-32 Anion Gap 9 mEq/L 8-16 Calcium 9.2 mg/dL 8.5-10.1 Total Protein 7.1 g/dL 6.4-8.2 Albumin 3.7 g/dL 3.4-5.0 Globulin 3.4 g/dL 1.9-4.3 Alb/Glob 1.1 ratio Bilirubin,Total 0.5 mg/dL 0.2-1.0 Sgot/Ast 19 U/L 15-37 SGPT/Alt 34 U/L 12-78 Alkaline Phosphatase 77 U/L 45-117 Reflex add FT3? Y Reflex add FT4? Y Laboratory test finding 09/07/2016 Urine Glucose Negative Negative Urine Culture SEE RESULT BELOW 42 [id number]-[id number] 08/21/2016 Nitrofurantoin <=16 Trimethoprim/Sulfamethoxazole <=20 Ampicillin <=2 Cefazolin <=4 Ampicillin/Sulbactam <=2 Ciprofloxacin <=0.25 Piperacillin/Tazobactam <=4 Ceftazidime <=1 Ceftriaxone <=1 Cefepime <=1 Levofloxacin <=0.12 Imipenem <=0.25 Gentamicin <=1 Tobramycin <=1 Urine Culture 08/20/2016 Urine Culture ESCHERICHIA COLI 43, 44 Quantity > 100,000 CFU/mL 43, 45 Urine Culture URETHRAL ALEXSANDRA 43 Quantity 10,000 - 50,000 <SEE NOTE> 43, 46 TSH Reflex FT4 And/Or FT3 07/16/2016 Thyroid Stim Hormone 0.08 uIU/mL Low 0.30-4.20 @[facility] Pat Id: [id number] @[facility] Req #: [id number] Reflex add FT3? Y Reflex add FT4? Y Free T3 07/16/2016 Free T3 2.52 pg/mL 2.18-3.98 @[facility] Pat Id: [id number] @[facility] Req #: [id number] Reflex add FT3? Y Reflex add FT4? Y Free T4 07/16/2016 Free T4 1.28 ng/dL 0.76-1.46 @[facility] Pat Id: [id number] @[facility] Req #: [id number] Reflex add FT3? Y Reflex add FT4? Y Liver Function Tests 04/23/2016 Total Protein 7.1 g/dL 6.4-8.2 Albumin 4.0 g/dL 3.4-5.0 Globulin 3.1 g/dL 1.9-4.3 Alb/Glob 1.3 ratio Bilirubin,Total 0.5 mg/dL 0.2-1.0 Bilirubin,Direct 0.1 mg/dL 0.0-0.2 Bilirubin,Indirect 0.4 mg/dL 0.0-0.9 Sgot/Ast 18 U/L 15-37 SGPT/Alt 29 U/L 12-78 Alkaline Phosphatase 73 U/L 45-117 Laboratory test finding 04/23/2016 Thyroid Stim Hormone 0.11 uIU/mL Low 0.30-4.20 Basic Metabolic Panel 04/23/2016 Glucose 83 mg/dL 74-106 BUN 17 mg/dL 7-18 Creatinine 1.0 mg/dL 0.6-1.3 Glom Filtration Rate, Estimate 57 mL/min >60 If >60 mL/min >60 47 BUN/Creat 17.0 ratio Sodium 140 mmol/L 136-145 Potassium 3.2 mmol/L Low 3.5-5.1 Chloride 102 mmol/L 98-107 Carbon Dioxide 29 mmol/L 21-32 Anion Gap 9 mEq/L 8-16 Calcium 9.5 mg/dL 8.5-10.1 LDL Cholesterol Profile 04/23/2016 Cholesterol 176 mg/dL 150-200 48 Triglycerides 129 mg/dL 50-150 49 HDL Cholesterol 61 mg/dL 60-150 50 LDL-Cholesterol 89 mg/dL 75-100 51 Basic Metabolic Panel 01/02/2016 Glucose 109 mg/dL High 74-106 BUN 17 mg/dL 7-18 Creatinine 0.9 mg/dL 0.6-1.3 Glom Filtration Rate, Estimate >60 mL/min >60 If >60 mL/min >60 52 BUN/Creat 18.8 ratio Sodium 138 mmol/L 136-145 Potassium 3.6 mmol/L 3.5-5.1 Chloride 102 mmol/L 98-107 Carbon Dioxide 26 mmol/L 21-32 Anion Gap 10 mEq/L 8-16 Calcium 9.7 mg/dL 8.5-10.1 Xray 10/12/2015 Chest PA & Lat 2 VWS <pending> Xray 10/12/2015 Shoulder Right 2+VWS <pending> Laboratory test finding 10/10/2015 Blood Urea Nitrogen 19 mg/dL 6-24 Creatinine 10/10/2015 Creatinine 0.98 mg/dL High 0.51-0.95 Egfr Non- 55.5 >60 Egfr 71.3 >60 53 Laboratory test finding 10/01/2015 Thyroid Stim Hormone 0.05 uIU/mL Low 0.36-3.74 54 Laboratory test finding 08/03/2015 Thyroid Stim Hormone < 0.01 uIU/mL Low 0.36-3.74 55 Basic Metabolic Panel 06/06/2015 Glucose 105 mg/dL 74-106 BUN 19 mg/dL High 7-18 Creatinine 1.1 mg/dL 0.6-1.3 Glom Filtration Rate, Estimate 52 mL/min >60 If >60 mL/min >60 56 BUN/Creat 17.2 ratio Sodium 135 mmol/L Low 136-145 Potassium 3.5 mmol/L 3.5-5.1 Chloride 100 mmol/L 98-107 Carbon Dioxide 28 mmol/L 21-32 Anion Gap 7 mEq/L Low 8-16 Calcium 9.5 mg/dL 8.5-10.1 Laboratory test finding 06/06/2015 Thyroid Stim Hormone 4.07 uIU/mL High 0.36-3.74 LDL Cholesterol Profile 06/06/2015 Cholesterol 154 mg/dL 150-200 57 Triglycerides 170 mg/dL High 50-150 58 HDL Cholesterol 56 mg/dL Low 60-150 59 LDL-Cholesterol 64 mg/dL Low 75-100 60 Liver Function Tests 06/06/2015 Total Protein 7.4 g/dL 6.4-8.2 Albumin 4.0 g/dL 3.4-5.0 Globulin 3.4 g/dL 1.9-4.3 Alb/Glob 1.2 ratio Bilirubin,Total 0.4 mg/dL 0.2-1.0 Bilirubin,Direct < 0.1 mg/dL 0.0-0.2 Bilirubin,Indirect 0.3 mg/dL 0.0-0.9 Sgot/Ast 31 U/L 15-37 SGPT/Alt 56 U/L 12-78 Alkaline Phosphatase 92 U/L 45-117 Laboratory test finding 01/12/2015 Urine Culture See Note 61 Laboratory test finding 12/11/2014 Bas% 0.3 % 0.0-1.1 Baso # 0.02 K/uL 0.0-0.1 Eo% 2.7 % 0.0-6.6 Eos # 0.17 K/uL 0.0-0.5 Hematocrit 39.0 % 36.0-46.1 Hemoglobin 13.2 gm/dL 11.6-15.8 Lymph # 1.44 K/uL Low 1.8-7.0 Lymph % 23.0 % 17.0-46.1 Mean Cell Volume 92.6 fl 80.9-99.0 Mean Corpuscular HGB 31.4 pg 25.9-32.7 Mean Corpuscular HGB Conc 33.8 g/dL 30.8-34.3 Mean Platelet Volume 9.2 fL 8.9-12.4 [place] # 0.52 K/uL 0.3-0.9 [place] % 8.3 % 4.3-13.2 Neut# 4.10 K/uL 1.0-7.0 Neut% 65.7 % 40.4-72.8 Platelet Count 233 K/uL 155-360 Red Blood Count 4.21 M/uL 3.90-5.40 Red Cell Distri Width %CV 13.7 % 11.7-14.4 Red Cell Distri Width SD 45.1 fl 3-47 Troponin-I 0.02 ng/mL 62 White Blood Count 6.3 K/uL 3.1-10.7 Comprehensive Metabolic Panel 12/11/2014 Alb/Glob 1.7 ratio Albumin 3.6 g/dL 3.4-5.0 Alkaline Phosphatase 100 U/L 45-117 Anion Gap 3 mEq/L Low 8-16 BUN 15 mg/dL 7-18 BUN/Creat 12.5 ratio Bilirubin,Total 0.5 mg/dL 0.2-1.0 Calcium 9.1 mg/dL 8.5-10.1 Carbon Dioxide 33 mmol/L High 21-32 Chloride 101 mmol/L 98-107 Creatinine 1.2 mg/dL 0.6-1.3 Globulin 2.1 g/dL 1.9-4.3 Glom Filtration Rate, Estimate 47 mL/min >60 Glucose 87 mg/dL 74-106 If 56 mL/min >60 63 Potassium 3.4 mmol/L Low 3.5-5.1 SGPT/Alt 30 U/L 12-78 Sgot/Ast 25 U/L 15-37 Sodium 137 mmol/L 136-145 Total Protein 5.7 g/dL Low 6.4-8.2 Laboratory test finding 11/28/2014 Antinuclear Antibodies, Ifa Negative . 64 C-Reactive Protein,Quant 3.5 mg/L <3.0 Rheumatoid Factor Screen < 10.0 Iu/ml 0.0-15.0 Sedimentation Rate 19 mm/hr 0-30 TSH Reflex FT4 and/or FT3 2.29 uIU/mL 0.36-3.74 65 Uric Acid 4.5 mg/dL 2.6-6.0 CBS W/Automated Diff 11/28/2014 Bas% 0.3 % 0.0-1.1 Baso # 0.02 K/uL 0.0-0.1 Eo% 1.5 % 0.0-6.6 Eos # 0.11 K/uL 0.0-0.5 Hematocrit 42.7 % 36.0-46.1 Hemoglobin 14.0 gm/dL 11.6-15.8 Lymph # 1.95 K/uL 0.8-3.4 Lymph % 26.8 % 17.0-46.1 Mean Cell Volume 93.8 fl 80.9-99.0 Mean Corpuscular HGB 30.8 pg 25.9-32.7 Mean Corpuscular HGB Conc 32.8 g/dL 30.8-34.3 Mean Platelet Volume 9.7 fL 8.9-12.4 [place] # 0.53 K/uL 0.3-0.9 [place] % 7.3 % 4.3-13.2 Neut# 4.66 K/uL 1.0-7.0 Neut% 64.1 % 40.4-72.8 Platelet Count 303 K/uL 155-360 Red Blood Count 4.55 M/uL 3.90-5.40 Red Cell Distri Width %CV 14.2 % 11.7-14.4 Red Cell Distri Width SD 47.4 fl High 3-47 White Blood Count 7.3 K/uL 3.1-10.7 Comprehensive Metabolic Panel 11/28/2014 Alb/Glob 1.1 ratio Albumin 3.8 g/dL 3.4-5.0 Alkaline Phosphatase 75 U/L 45-117 Anion Gap 9 mEq/L 8-16 BUN 19 mg/dL High 7-18 BUN/Creat 14.6 ratio Bilirubin,Total 0.3 mg/dL 0.2-1.0 Calcium 9.0 mg/dL 8.5-10.1 Carbon Dioxide 29 mmol/L 21-32 Chloride 106 mmol/L 98-107 Creatinine 1.3 mg/dL 0.6-1.3 Globulin 3.4 g/dL 1.9-4.3 Glom Filtration Rate, Estimate 43 mL/min >60 Glucose 89 mg/dL 74-106 If 52 mL/min >60 66 Potassium 4.1 mmol/L 3.5-5.1 SGPT/Alt 30 U/L 12-78 Sgot/Ast 19 U/L 15-37 Sodium 140 mmol/L 136-145 Total Protein 7.2 g/dL 6.4-8.2 LDL Cholesterol Profile 11/28/2014 Cholesterol 176 mg/dL < 200 67 HDL Cholesterol 59 mg/dL > 40 68 LDL-Cholesterol 81 mg/dL < 100 69 Triglycerides 180 mg/dL < 150 70 1 Z01.[address] NIRAV PATEL AT [phone] NIRAV PATEL AT [phone] 4 N39.41 5 URINE, CLEAN CATCH 6 I10 E78.5 7 Reference Guidelines*: Desirable: ........... < 200 mg/dL Borderline High: ..... 200-239 mg/dL High: ................ >=240 mg/dL * The National Cholesterol Education Program (NCEP) 8 Reference Guidelines*: Normal: ............. < 150 mg/dL Borderline High: .... 150-199 mg/dL High: ............... 200-499 mg/dL Very High: .......... > 500 mg/dL * Source: National Cholesterol Education Program (NCEP) 9 Reference Guidelines*: Low HDL: ..... < 40 mg/dL Normal: ..... 40-60 mg/dL Desirable: ... > 60 mg/dL *The National Cholesterol Education Program(NCEP) 10 Reference Guidelines*: Optimal:........... <100 mg/dL Near Optimal....... 100-129 mg/dL Borderline High.... 130-159 mg/dL High............... 160-189 mg/dL Very High.......... >=190 mg/dL * Source: National Cholesterol Education Program (NCEP) 11 Note: Persistent reduction for 3 months or more in an eGFR <60 mL/min/1.73 m2 defines CKD. Patients with eGFR values >/=60 mL/min/1.73 m2 may also have CKD if evidence of persistent proteinuria is present. The original MDRD equation for estimated GFR is not valid for patients less than 18 years of age. Additional information may be found at www.kdoqi.org. 12 CHEST PAIN 13 Reference Guidelines*: Desirable: ........... < 200 mg/dL Borderline High: ..... 200-239 mg/dL High: ................ >=240 mg/dL * The National Cholesterol Education Program (NCEP) 14 Reference Guidelines*: Normal: ............. < 150 mg/dL Borderline High: .... 150-199 mg/dL High: ............... 200-499 mg/dL Very High: .......... > 500 mg/dL * Source: National Cholesterol Education Program (NCEP) 15 Reference Guidelines*: Low HDL: ..... < 40 mg/dL Normal: ..... 40-60 mg/dL Desirable: ... > 60 mg/dL *The National Cholesterol Education Program(NCEP) 16 Reference Guidelines*: Optimal:........... <100 mg/dL Near Optimal....... 100-129 mg/dL Borderline High.... 130-159 mg/dL High............... 160-189 mg/dL Very High.......... >=190 mg/dL * Source: National Cholesterol Education Program (NCEP) 17 0.0 - 0.045 ng/mL: Normal 0.046 - 0.5 ng/mL: Suggestive 0.6 - 1.5 ng/mL: Consistent 18 Elevated levels of HbA1c suggest the need for more aggressive treatment of glycemia. The [place] [employer] recommends that a primary goal of therapy should be a HbA1c of <7% and that physicians should re-evaluate the treatment regimen in patients with HbA1c values consistently >8%. 19 0.0 - 0.045 ng/mL: Normal 0.046 - 0.5 ng/mL: Suggestive 0.6 - 1.5 ng/mL: Consistent 20 CP 21 E03.9 22 Z02.1 23 Negative <25.0 Equivocal 25.0 - 29.9 Positive >29.9 Presence of antibodies to Rubeola is presumptive evidence of immunity except when acute infection is suspected. Performed at: - [facility] [address] [id number] Furnace Install[employer] Helper: La Marquez MD, Phone: [phone] 24 Values >=10.0 IU/mL are positive for IgG antibodies to rubella virus and are considered IMMUNE. 25 DIARRHEA, ELECTROLYTE ABNORMALITIES 26 Note: Persistent reduction for 3 months or more in an eGFR <60 mL/min/1.73 m2 defines CKD. Patients with eGFR values >/=60 mL/min/1.73 m2 may also have CKD if evidence of persistent proteinuria is present. The original MDRD equation for estimated GFR is not valid for patients less than 18 years of age. Additional information may be found at www.kdoqi.org. 27 Note: Persistent reduction for 3 months or more in an eGFR <60 mL/min/1.73 m2 defines CKD. Patients with eGFR values >/=60 mL/min/1.73 m2 may also have CKD if evidence of persistent proteinuria is present. The original MDRD equation for estimated GFR is not valid for patients less than 18 years of age. Additional information may be found at www.kdoqi.org. 28 GALL BLADDER? SENT BY [facility] 29 NEGATIVE FOR C. DIFFICILE TOXIN A/B. 30 POSSIBLE UROGENITAL CONTAMINATION. 31 URINE, CLEAN CATCH 32 DIARRHEA, ELECTROLYTE ABNORMALITIES 33 Tests: magnesium Instructions: 34 Note: Persistent reduction for 3 months or more in an eGFR <60 mL/min/1.73 m2 defines CKD. Patients with eGFR values >/=60 mL/min/1.73 m2 may also have CKD if evidence of persistent proteinuria is present. The original MDRD equation for estimated GFR is not valid for patients less than 18 years of age. Additional information may be found at www.kdoqi.org. 35 R39.9 36 NO GROWTH: FINAL REPORT 37 Reference Guidelines*: Desirable: ........... < 200 mg/dL Borderline High: ..... 200-239 mg/dL High: ................ >=240 mg/dL * The National Cholesterol Education Program (NCEP) 38 Reference Guidelines*: Normal: ............. < 150 mg/dL Borderline High: .... 150-199 mg/dL High: ............... 200-499 mg/dL Very High: .......... > 500 mg/dL * Source: National Cholesterol Education Program (NCEP) 39 Reference Guidelines*: Low HDL: ..... < 40 mg/dL Normal: ..... 40-60 mg/dL Desirable: ... > 60 mg/dL *The National Cholesterol Education Program(NCEP) 40 Reference Guidelines*: Optimal:........... <100 mg/dL Near Optimal....... 100-129 mg/dL Borderline High.... 130-159 mg/dL High............... 160-189 mg/dL Very High.......... >=190 mg/dL * Source: National Cholesterol Education Program (NCEP) 41 Note: Persistent reduction for 3 months or more in an eGFR <60 mL/min/1.73 m2 defines CKD. Patients with eGFR values >/=60 mL/min/1.73 m2 may also have CKD if evidence of persistent proteinuria is present. The original MDRD equation for estimated GFR is not valid for patients less than 18 years of age. Additional information may be found at www.kdoqi.org. 42 SEE RESULT BELOW Name: ANA SNIDER : [address]: Jefferson Butler MD Acct: [id number] Unit: [id number] AGE: 75 Location: [facility] Re09/07/16 SEX: F Status: DEP ER SPEC: [id number] JYOTI: 09/07/16-1545 [facility] DR: Debra Bruce NP REQ: [id number] RECD: 09/08/16 STATUS: LAWANDA WEBSTER DR: [facility] Mila Rangel MD _ SOURCE: URINE SPDESC: ORDERED: Urine Culture Procedure Result Reported Site Urine Culture Final 09/10/16- 0756 ML Organism 1 ESCHERICHIA COLI [place] Count >100,000 (Many) CFU/ML 1. ESCHERICHIA COLI M.I.C. RX --------- ------ Ampicillin <=2 S Cefazolin <=4 S Cefepime <=1 S Ceftriaxone <=1 S Ciprofloxacin <=0.25 S Gentamicin <=1 S Levofloxacin <=0.12 S Meropenem <=0.25 S Nitrofurantoin <=16 S Tetracycline <=1 S Pipercillin/Tazobactam <=4 S Trimethoprim/Sulfamethoxazole <=20 S Amoxicillin/Clavulanic Acid <=2 S Aztreonam <=1 S Contact the Microbiology Department for any additional antibiotic reporting. * ML - MAIN LAB ([facility]) . END OF REPORT * ML=Testing performed at Main Lab DEPARTMENT OF PATHOLOGY, [address] [place] [address] Alfie Alfaro M.D. Director [facility] # [id number] 43 N39.0 44 ESCHERICHIA COLI 45 > 100,000 CFU/mL 46 10,000 - 50,000 CFU/mL 47 Note: Persistent reduction for 3 months or more in an eGFR <60 mL/min/1.73 m2 defines CKD. Patients with eGFR values >/=60 mL/min/1.73 m2 may also have CKD if evidence of persistent proteinuria is present. The original MDRD equation for estimated GFR is not valid for patients less than 18 years of age. Additional information may be found at www.kdoqi.org. 48 Reference Guidelines*: Desirable: ........... < 200 mg/dL Borderline High: ..... 200-239 mg/dL High: ................ >=240 mg/dL * The National Cholesterol Education Program (NCEP) 49 Reference Guidelines*: Normal: ............. < 150 mg/dL Borderline High: .... 150-199 mg/dL High: ............... 200-499 mg/dL Very High: .......... > 500 mg/dL * Source: National Cholesterol Education Program (NCEP) 50 Reference Guidelines*: Low HDL: ..... < 40 mg/dL Normal: ..... 40-60 mg/dL Desirable: ... > 60 mg/dL *The National Cholesterol Education Program(NCEP) 51 Reference Guidelines*: Optimal:........... <100 mg/dL Near Optimal....... 100-129 mg/dL Borderline High.... 130-159 mg/dL High............... 160-189 mg/dL Very High.......... >=190 mg/dL * Source: National Cholesterol Education Program (NCEP) 52 Note: Persistent reduction for 3 months or more in an eGFR <60 mL/min/1.73 m2 defines CKD. Patients with eGFR values >/=60 mL/min/1.73 m2 may also have CKD if evidence of persistent proteinuria is present. The original MDRD equation for estimated GFR is not valid for patients less than 18 years of age. Additional information may be found at www.kdoqi.org. 53 Because ethnic data is not always readily available, this report includes an eGFR for both -Americans and non- Americans. The National Kidney Disease Education Program (NKDEP) does not endorse the use of the MDRD equation for patients that are not between the ages of 18 and 70, are , have extremes of body size, muscle mass, or nutritional status, or are non- or non-. According to the National Kidney Foundation, irrespective of diagnosis, the stage of the disease is based on the level of kidney function: Stage Description GFR(mL/min/1.73 m(2)) 1 Kidney damage with normal or decreased GFR 90 2 Kidney damage with mild decrease in GFR 60-89 3 Moderate decrease in GFR 30-59 4 Severe decrease in GFR 15-29 5 Kidney failure <15 (or dialysis) 54 A low TSH should not be the sole basis for diagnosing primary hyperthyroidism, or primary hypopituitary function. Additional tests are suggested for confirmation. 55 Result confirmed by repeat analysis. A low TSH should not be the sole basis for diagnosing primary hyperthyroidism, or primary hypopituitary function. Additional tests are suggested for confirmation. 56 Note: Persistent reduction for 3 months or more in an eGFR <60 mL/min/1.73 m2 defines CKD. Patients with eGFR values >/=60 mL/min/1.73 m2 may also have CKD if evidence of persistent proteinuria is present. The original MDRD equation for estimated GFR is not valid for patients less than 18 years of age. Additional information may be found at www.kdoqi.org. 57 Reference Guidelines*: Desirable: ........... < 200 mg/dL Borderline High: ..... 200-239 mg/dL High: ................ >=240 mg/dL * The National Cholesterol Education Program (NCEP) 58 Reference Guidelines*: Normal: ............. < 150 mg/dL Borderline High: .... 150-199 mg/dL High: ............... 200-499 mg/dL Very High: .......... > 500 mg/dL * Source: National Cholesterol Education Program (NCEP) 59 Reference Guidelines*: Low HDL: ..... < 40 mg/dL Normal: ..... 40-60 mg/dL Desirable: ... > 60 mg/dL *The National Cholesterol Education Program(NCEP) 60 Reference Guidelines*: Optimal:........... <100 mg/dL Near Optimal....... 100-129 mg/dL Borderline High.... 130-159 mg/dL High............... 160-189 mg/dL Very High.......... >=190 mg/dL * Source: National Cholesterol Education Program (NCEP) 61 Organism 1 ! URETHRAL ALEXSANDRA Quantity ! 10,000 - 50,000 CFU/mL 62 0.0 - 0.045 ng/mL: Normal 0.046 - 0.5 ng/mL: Suggestive 0.6 - 1.5 ng/mL: Consistent 63 Note: Persistent reduction for 3 months or more in an eGFR <60 mL/min/1.73 m2 defines CKD. Patients with eGFR values >/=60 mL/min/1.73 m2 may also have CKD if evidence of persistent proteinuria is present. The original MDRD equation for estimated GFR is not valid for patients less than 18 years of age. Additional information may be found at www.kdoqi.org. 64 Negative <1:80 Borderline 1:80 Positive >1:80 Performed at: RN - [facility] [address] [id number] Furnace Install[employer] Helper: La Marquez MD, Phone: [phone] 65 QUERY: Reflex add FT3? N QUERY: Reflex add FT4? Y 66 Note: Persistent reduction for 3 months or more in an eGFR <60 mL/min/1.73 m2 defines CKD. Patients with eGFR values >/=60 mL/min/1.73 m2 may also have CKD if evidence of persistent proteinuria is present. The original MDRD equation for estimated GFR is not valid for patients less than 18 years of age. Additional information may be found at www.kdoqi.org. 67 Reference Guidelines*: Desirable: ........... < 200 mg/dL Borderline High: ..... 200-239 mg/dL High: ................ >=240 mg/dL * The National Cholesterol Education Program (NCEP) 68 Reference Guidelines*: Low HDL: ..... < 40 mg/dL Normal: ..... 40-60 mg/dL Desirable: ... > 60 mg/dL *The National Cholesterol Education Program(NCEP) 69 Reference Guidelines*: Optimal:........... <100 mg/dL Near Optimal....... 100-129 mg/dL Borderline High.... 130-159 mg/dL High............... 160-189 mg/dL Very High.......... >=190 mg/dL * Source: National Cholesterol Education Program ( NCEP) 70 Reference Guidelines*: Normal: ............. < 150 mg/dL Borderline High: .... 150-199 mg/dL High: ............... 200-499 mg/dL Very High: .......... > 500 mg/dL * Source: National Cholesterol Education Program (NCEP) Procedures Date CPT Code Description Status Comment 12/15/2017 48154 Measurement Post Voiding Completed Residual Urine By Ultrasound,Non-Imaging 11/17/2017 23954 Measurement Post Voiding Completed Residual Urine By Ultrasound,Non-Imaging 11/17/2017 70986 complex uroflowmetry Completed electronic 01/02/2016 81250 Neuroplasty median nerve at Completed carpal tunnel 12/31/2015 42118 EKG-Tracing And Report Completed 10/15/2015 02979 Nerve Conduction 7-8 Studies Completed 10/15/2015 34786 Needle Electromyography Completed Complete, Five Or More Muscles Studied 07/04/2015 Mammogram Completed birads 2Document: 07/04/15 - Digital Mammo Screen Bilat, wants stop screening 06/28/2014 Bone Mineral Density Test Completed Document: 06/28/14 - Dexa Scan Resultnormal 11/11/2011 66813 EKG Interpretation And Report Completed Only 02/20/201187956 Asp./Injection major joint Completed 01/22/201100287 Asp./Injection major joint Completed 11/13/2010 66688 EKG-Tracing And Report Completed 07/04/2010 05367 EKG Interpretation And Report Completed Only Encounters Type Date Location Provider CPT E/M Dx Office Visit 04/08/2018 Family Medicine Varun Glover [facility] 40126 S93.602A 10:00a Office Visit 03/19/2018 Family Medicine Mila Rangel M.D. 11610 S40.861A 2:15p Office Visit 12/15/2017 Urology Bill Bolaños M.D. 09701 N39.41 1:15p R35.1 Office Visit 11/17/2017 1:30p Urology Bill Bolaños M.D. 28121 N39.41 Office Visit 10/23/2017 1:45p Family Medicine Mila Rangel M.D. 24003 I10 E78.5 E03.9 R32 M54.5 Office Visit 09/15/2017 11:45a Family Medicine Mila Rangel M.D. 48356 R32 Office Visit 07/23/2017 10:15a Family Medicine Mila Rangel M.D. 47215 I10 E78.5 E03.9 R32 M62.838 Office Visit 04/17/2017 10:45a Family Medicine Mila Rangel M.D. 45846 I10 E78.5 E03.9 M54.5 Office Visit 02/06/2017 1:30p Family Medicine Mila Rangel M.D. 75225 R23.2 Office Visit 01/13/2017 10:15a Family Medicine Mila Rangel M.D. 55368 I10 E78.5 E03.9 M54.5 R32 Office Visit 12/16/2016 2:30p Family Medicine Mila Rangel M.D. 78752 Z02.1 R19.7 R32 M54.5 Z11.1 Office Visit 12/02/2016 10:15a Family Medicine QUE Pedraza-, 28040 J01.90 [employer], Ibclc Office Visit 10/16/2016 11:00a Family Medicine Mila Rangel M.D. 51520 I10 E78.5 E03.9 F41.9 R32 Z79.82 Office Visit 09/24/2016 1:00p Family Medicine Varun Glover [facility] 23394 Z01.818 G56.02 I25.10 Z12.31 L82.1 Office Visit 08/20/2016 11:00a Family Medicine QUE Pedraza-BC, [employer], 79759 N39.0 Ibclc Office Visit 07/16/2016 3:45p Family Medicine Mila Rangel M.D. 20135 M79.7 E03.9 R32 Office Visit 04/23/2016 3:15p Family Medicine Jo Becker M.D. 15897 M25.511 M25.512 M54.2 E78.2 E03.9 Office Visit 02/20/2016 11:30a Family Medicine Jo Becker M.D. 92375 M25.532 M54.5 Office Visit 12/31/2015 11:00a Family Medicine Jo Becker M.D. 47467 G56.02 Z01.818 Office Visit 12/12/2015 10:30a Family Medicine Mila Rangel M.D. 78596 M25.511 Office Visit 12/04/2015 9:00a Orthopaedic Office SOFIA Posadas 76042 G56.02 Office Visit 12/04/2015 10:30a Family Medicine Jo Becker 39928 M25.511 M.DAnette Office Visit 10/22/2015 1:30p Family Medicine Jo Becker 07948 M25.511 Ozzy M54.2 Office Visit 10/01/2015 2:30p Family Medicine Jo Becker M.D. 12337 G56.02 E03.9 Office Visit 08/03/2015 10:30a Family Medicine Jo Becker M.D. 41141 E78.5 E03.9 I10 F33.2 Z23 Office Visit 06/06/2015 2:40p Family Medicine Jo Becker M.D. 17235 272.4 401.1 244.9 723.1 Office Visit 05/02/2015 10:00a Family Medicine Jo Becker M.D. 69395 723.1 781.2 V03.82 Office Visit 04/19/2015 11:30a [place] [address] 781.2 724.5 Office Visit 03/16/2015 1:00p Family Medicine Jo Becker 44143 296.33 M.D. Office Visit 03/02/2015 2:30p Family Medicine Jo Becker 38654 296.33 M.D. Office Visit 01/18/2015 2:00p Family Medicine Varun Glover 06839 788.41 [facility] Office Visit 01/10/2015 1:30p Family Medicine Varun Glover 15597 788.41 [facility] Office Visit 02/23/2012 2:05p Cardiology Office Thien Guillermo, 35574 786.50 M.DAnette, [facility] Office Visit 11/13/2010 1:40p [facility] Thien Guillermo, 77123 414.01 M.Nakia, FAC 272.4 786.59 401.1 Office Visit 07/10/2010 10:00a Orthopaedic Office Alfredito Perez, 22718 840.4 M.Nakia 726.10 V67.09 Plan of Care Future Appointment(s):06/15/2018 10:30 am - Bill Bolaños M.D. at [id number] - Mila Rangel M.D.Z00.01 Encounter for general adult medical exam w abnormal findingsComments:Discussed lifestyle modification, healthy balanced diet and moderate exercise 30 mins dailyImmunizations UTD, shingrix discussed and declinedpreventative screening stopped except DEXA, no concerns currentlyMMSE done today, no cognitive decline concernsFunctional status and safety assessed, no concernsAdvance directives discusssed and HCP is elvia Anderson , has copy, will scan into chart, patient is DNR/DNIZ13.820 Encounter for screening for osteoporosisNew Labs:Vitamin D,25-HydroxyNew Xrays:Dexa Scan, 1 Or MoreComments:will schedule repeat DEXA, last 2013will check renal function, Ca and vitamin D [id number] Essential (primary) hypertensionNew Labs:Basic Metabolic PanelComments:BP at goal, no symptomscontinue with lisinopril-HCTZ pill, avoid excess Na in dietFollow up:3 mosE78.5 Hyperlipidemia, unspecifiedNew Labs:LDL Cholesterol ProfileComments:Will recheck lipid panel, has been doing well on atorvastatin 22fjW29.9 Hypothyroidism, unspecifiedNew Labs:TSH Reflex FT4 And/Or JS9Xnobrnaa:will recheck TSH today, has been on levothyroxine 100mcg without any concerns or new symptoms
--- OUTSIDE RECORDS SUMMARY | 2018-05-06 16:13 | XMS REPORT ---
:1940 External Reference #:[id number] [facility] Address [address], [address] [place] [address] Phone [phone] Care Team Providers Name Role Phone Mila Rangel M.D. Care Team Information Global Program Manager Unavailable Mila Rangel M.D. Primary Care Physician Unavailable Payers Type Date Identification Numbers Payment Provider Subscriber Commercial Policy Number: [id number] Today Options Medicare Ana Snider PayID: [id number] [address] [address] [place] [address] Commercial Expires: 2016 Policy Number: [facility] Ana Snider [id number] Medicare PayID: [id number] [address] [address] [place] [address] Medicare Primary Expires: 2016 Policy Number: Medicare Ana Snider [id number] Group Name: Medicare [address] PayID: [id number] [place] [address] Commercial Expires: 2016 Policy Number: DO Not Use-Add Josh Snider [id number] PayID: [id number] [address] [place] [address] Medigap Part B Expires: 2017 Policy Number: [id number] simon Snider PayID: [id number] [address] [place] [address] Problems Date Description Provider Status Onset: 11/28/2014 Essential hypertension Mya Alana, RPAC Active Onset: 11/28/2014 Hyperlipidemia Mya Alana, RPAC Active Onset: 11/28/2014 Hypothyroidism Mya Alana RPAC Active Onset: 11/30/2014 Degenerative joint disease Mya Warner [facility] Active involving multiple joints Onset: 11/28/2014 Coronary arteriosclerosis Mya Warner [facility] Active Onset: 11/28/2014 Anxiety disorder Mya Warner [facility] Active Onset: 04/19/2015 H/O Spinal surgery Zayda [...] Use Daily Caffeine 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 By Mouth Twice A Day Lisinopril-[place] 10/01 Active Tablets 20-12.5mg 180ta Take Two Mila Rangel chlorothiazide bs Tablets M.D. By Mouth Every Day Trazodone HCL 03/16 Active Tablets 150mg 90tab Take One F33.2 Mila Rangel s Tablet M.D. By Mouth AT Bedtime Atorvastatin 11/28 Active Tablets 40mg 90tab Take One Mila Rangel Calcium s Tablet M.D. By Mouth Every Day Dry Eye Drops Active 3 drops Unknown qd Mucus Relief Active Tablets 400mg 2 po qd Unknown Vitamin C Immune Active Chewtabs 1000mg 3 daily Unknown (winter only) Multi For Her Active Capsules 1 a day Unknown Fluticasone Active Suspension 50mcg/Act 16uni Collbran 2 Mila Rangel Propionate ts Sprays M.D. Intranas ally Every Day Clopidogrel 00 Active Tablets 75mg 90tab Take One Mila Rangel Bisulfate s Tablet M.D. By Mouth Every Day Gabapentin Active Capsules 300mg 270ca Take One Mila Claire ps Capsule M.D. By Mouth Three Times A Day Famotidine Active Tablets 20mg 90tab Take One Mila Rangel s Tablet M.D. By Mouth Every Day Ibuprofen 10/23 Hx Capsules 200mg as Mila Rangel needed M.D. - 10/23 Nitro Stat 12/16 Hx .0.4 i prn Mila Rangel, for M.D. - chest 12/16 pain Oxybutynin 12/16 Hx Tablets 5mg 60tab take one Mila Rangel s tablet M.D. - by mouth 12/16 qd Ondansetron 12/16 Hx Tablets 4mg 30tab 1 by Mila Rangel Dispers s mouth M.D. - every 4 12/30 hour as needed Metronidazole 12/16 Hx Tablets 500mg 42tab 1 by Mila Rangel, s mouth M.D. - three 12/30 times a day Flonase 12/16 Hx Suspension 50mcg/Act 16uni 2 sprays Mila Rangel, ts each M.D. - nare 02/06 Lidoderm 12/16 Hx Patches 5% 30uni apply M54.5 Mila Rangel ts patch to M.D. - lower 02/06 back every 24 hours, max 1 patch per 24h period Cefdinir 12/02 Hx Capsules 300mg 20cap 1 by J01.90 Kisha Ervin, s mouth PNP-BC, MOLDER HAND, - twice a Ibclc Myrbetriq 11/19 Hx Tablets ER 25mg 90tab take one Lincoln Khan 24HR s tablet Mami, M.D. - by mouth 12/15 every day Tolterodine 11/04 Hx Caps ER 4mg 30cap 1 by R3Melia Rangel Tartrate ER 24HR s mouth M.D. - every Clonazepam 10/16 Hx Tablets 0.25mg take 1 F41.9 Mila Rangel Dispers tab by Ozzy - mouth 10/16 twice a day referenc e #: [id number] Clonazepam 10/16 Hx Tablets 0.5mg take 1/2 F41.9 Mila Rangel by mouth M.D. - Q daily 12/16 Tolterodine 10/16 Hx Caps ER 2mg 30cap 1 tab PO R32 Mila Rangel Tartrate ER 24HR s Q daily M.DAnette - 11/04 Macrobid 08/24 Hx Capsules 100mg 14cap 1 by Kisha Ervin, s mouth PNP-TONIO DAVIS, - twice a Ibclc Oxybutynin 07/16 Hx Tablets ER 10mg 90tab 2 by F41.9 Mila Rangel, Chloride ER /2015 24HR s mouth MAnetteDAnette - every Levothyroxine 08/29 Hx Tablets 125mcg 90tab 1 by Sivakumar Keys /2014 s mouth Ozzy - every Levothyroxine 08/03 Hx Tablets 112mcg 60tab 1 by Jo Shaver s emelia Becker M.D. - every Levothyroxine 06/11 Hx Tablets 125mcg 90tab 1 by Jo Shaver s mouth Ozzy Becker - every Naproxen 05/02 Hx Tablets 375mg 100ta take one 723.1 Jo bs tablet Ozzy Becker - by mouth 10/01 twice a day with food Clonazepam 05/02 Hx Tablets 0.5mg 30tab one once Mila Rangel s a day as MLilliam - needed.. 10/16 Referenc e #: [id number] Physical Therapy 04/19 Hx Please Zayda /2015 Janelle MD - treat 12/04 neck /2016 pain, right shoulder pain, and upper and lower back pain. Trazodone HCL 03/02 Hx Tablets 100mg 30tab one and 296.33 Jo /2015 s a regalado at Ozzy Becker - bedtime. 03/16 Oxybutynin 01/18 Hx Tablets ER 5mg 90tab take 1 Jamari Keys ER 24HR s tablet Ozzy - daily 07/16 Lisinopril/[place] 11/28 Hx Tablets 20-12.5 90tab 1 by Jo chlorothiazide s mouth Ozzy Becker - every Fluoxetine HCL 11/28 Hx Capsules 20mg 30cap 1 by Rosita /2014 s mouth MD Jo - every Clonazepam 11/28 Hx Tablets 0.5mg 60tab 1 tabs Jo /2015 s by emelia Becker M.D. - twice a 05/02 day needed.. ...Refer ence #: [id number] Lidocaine 11/28 Hx Patches 5% 90uni one ts patch to Ozzy Becker - lower 12/25 every 12 hours as needed Duloxetine HCL 11/[address] 30mg 360ca 2 caps Mila Rangel, Part ps by mouth Ozzy - twice a Levothyroxine Hx Tablets 100mcg 1 po qd Unknown Sodium /0000 - 06/11 Clonazepam Hx Tablets 1mg 1 po tid Unknown /0000 prn - 01/22 Vesicare Hx Tablets 5mg 30tab 1 po qd Unknown /0000 s - 01/11 Nitrostat Hx Tablets 0.4mg 25tab 1 tab sl Unknown /0000 Sub s q 5 min - x3 chest 07/16 pain Tramadol HCL 00 Hx Tablets 50mg 1 by Unknown /0000 mouth as - needed 04/19 for pain Q 4 - 6 HRS Methylprednisolo 00 Hx Tablets 4mg 21tab 1 PO qd Jo ne / s Ozzy Becker - 12/11 Vitamin C 00/00 Hx Unknown /0000 - 12/16 Biotene Dry Hx Liquid swish Unknown Mouth /0000 and spit - out four 12/25 times day as needed dry mouth Vitamin E 00 Hx Capsules 400Unit 1 by Unknown /0000 [...] Day Methylprednisolo Hx Tablets 32mg for use Nirav ne / w kate Patel MD - 04/08 Medications Administered in Office Medication Date Status Form Strength Qnty SIG Indications Ordering Provider PPD Administered Injection Mila Rangel 7 M.DAnette Immunizations CPT Code Status Date Vaccine Lot # [id number] Given 07/02/2016 Influenza Vaccine (Fluzone) Age 3 And Older [id number] Given 08/03/2015 Influenza Vaccine (Fluzone) Age 3 And Older [id number] Given 05/02/2015 Pneumococcal Conjugate Vaccine 13 Valent For [id number] Intramuscular Use [id number] Given 06/23/2011 Pneumovax Injection Vital Signs Date Vital Result Comment 04/08/2018 BP Systolic Sitting Left Arm 128 mmHg BP Diastolic Sitting Left Arm 76 mmHg Heart Rate 72 /min Respiratory Rate 18 /min Height 63 inches 5'3" Weight 185.00 lb BMI (Body Mass Index) 32.8 kg/m2 BSA (Body Surface Area) 1.87 m2 Bern body weight in kilograms 52 03/19/2018 BP [...] kg/m2 BSA (Body Surface Area) 1.87 m2 Bern body weight in kilograms 52 O2 % BldC Oximetry 92 % Pain Level 0 11/17/2017 BP Systolic 150 mmHg BP Diastolic 77 mmHg Body Temperature 97.9 F Heart Rate 71 /min Respiratory Rate 17 /min Height 63 inches 5'3" Weight 187.12 lb BMI (Body Mass Index) 33.1 kg/m2 BSA (Body Surface Area) 1.88 m2 Bern body weight in kilograms 52 O2 % BldC Oximetry 94 % Pain Level 10 Hip/leg 10/23/2017 BP Systolic 144 mmHg BP Diastolic 84 mmHg Body Temperature 98.5 F Heart Rate 78 /min Height 63 inches 5'3" Weight 184.00 lb BMI (Body Mass Index) 32.6 kg/m2 BSA (Body Surface Area) 1.87 m2 Bern body weight in kilograms 52 O2 % BldC Oximetry 98 % 09/15/2017 BP Systolic Sitting Left Arm 128 mmHg BP Diastolic Sitting Left Arm 66 mmHg Body Temperature 98.5 F Heart Rate 62 /min Height 63 inches 5'3" Weight 187.12 lb BMI (Body Mass Index) 33.1 kg/m2 BSA (Body Surface Area) 1.88 m2 Bern body weight in kilograms 52 O2 % BldC Oximetry 96 % 07/23/2017 BP Systolic 152 mmHg BP Diastolic 88 mmHg Body Temperature 96.8 F Heart Rate 59 /min Height 63 inches 5'3" Weight 189.00 lb BMI (Body Mass Index) 33.5 kg/m2 BSA (Body Surface Area) 1.89 m2 Bern body weight in kilograms 52 O2 % BldC Oximetry 98 % 04/17/2017 BP Systolic 107 mmHg BP Diastolic 79 mmHg Body Temperature 98.2 F Heart Rate 66 /min Height 63 inches 5'3" Weight 192.00 lb BMI (Body Mass Index) 34.0 kg/m2 BSA (Body Surface Area) 1.90 m2 Bern body weight in kilograms 52 02/06/2017 BP [...] kg/m2 BSA (Body Surface Area) 1.88 m2 Bern body weight in kilograms 52 12/02/2016 BP [...] kg/m2 BSA (Body Surface Area) 1.90 m2 Bern body weight in kilograms 54 O2 % BldC Oximetry 97 % 09/24/2016 BP Systolic Sitting Left Arm 118 mmHg BP Diastolic Sitting Left Arm 72 mmHg Heart Rate 68 /min Respiratory Rate 18 /min Height 64 inches 5'4" Weight 186.38 lb BMI (Body Mass Index) 32.0 kg/m2 BSA (Body Surface Area) 1.90 m2 Bern body weight in kilograms 54 08/20/2016 BP [...] kg/m2 BSA (Body Surface Area) 1.94 m2 Bern body weight in kilograms 57 04/23/2016 BP Systolic 128 mmHg BP Diastolic 74 mmHg Body Temperature 98.4 F Heart Rate 78 /min Respiratory Rate 18 /min Height 64 inches 5'4" Weight 190.00 lb BMI (Body Mass Index) 32.6 kg/m2 BSA (Body Surface Area) 1.91 m2 Bern body weight in kilograms 54 02/20/2016 BP [...] Ketone NEGATIVE mg/dL Negative 4 Urine Specific Sanders 1.010 1.010-1.030 4 Urine Blood NEGATIVE Negative 4 Urine PH 6.0 Low 6.5-7.5 4 Urine Protein - Dipstick NEGATIVE mg/dL Negative 4 Urine Urobilinogen - Dipstick 0.2 E.U./dL 0.2-1.0 4 Urine Nitrite - Dipstick NEGATIVE Negative 4 Urine Leuk Esterase NEGATIVE Negative 4 Source: URINE, CLEAN CAT <SEE NOTE> 4, 5 Comprehensive Metabolic Panel 10/23/2017 Glucose 154 mg/dL High 74-106 6 BUN 15 mg/dL 7-18 6 Creatinine 1.1 mg/dL 0.6-1.3 6 Glom Filtration Rate, Estimate 51 mL/min >60 6 If >60 mL/min >60 6, 7 BUN/Creat 13.6 ratio 6 Sodium 134 mmol/L [...] add FT4? Y 6 LDL Cholesterol Profile 10/23/2017 Cholesterol 153 mg/dL <200 6, 8 Triglycerides 82 mg/dL <150 6, 9 HDL Cholesterol 88 mg/dL >40 6, 10 LDL-Cholesterol 49 mg/dL < 100 6, 11 Reflex add FT3? Y 6 Reflex add [...] 20 Lymph % 25.5 % 20.0-42.0 20 [place] % 8.1 % 4.3-13.2 20 Eo% 3.5 % 0.0-6.6 20 Bas% 0.4 % 0.0-1.1 20 Neut# 4.32 K/uL 1.8-7.0 20 Lymph # 1.76 K/uL 1.0-4.0 20 [place] # 0.56 K/uL 0.3-0.9 20 Eos # [...] IgG Iu/ml 317.7 IU/mL >=10.0 22, 24 CBS W/Automated Diff 2016 White Blood Count [...] Lymph % 18.2 % Low 20.0-42.0 25 [place] % 7.4 % 4.3-13.2 25 Eo% 1.4 % 0.0-6.6 25 Bas% 0.2 % 0.0-1.1 25 Neut# 6.78 K/uL 1.8-7.0 25 Lymph # 1.70 K/uL 1.0-4.0 25 [place] # 0.69 K/uL 0.3-0.9 25 Eos # 0.13 K/uL 0.0-0.5 25 Baso # 0.02 K/uL 0.0-0.1 25 Basic Metabolic Panel 2016 Glucose 103 mg/dL [...] 8.9 mg/dL 8.5-10.1 25 CBS W/Automated Diff 12/08/2016 White [...] Lymph % 7.3 % Low 20.0-42.0 25 [place] % 6.9 % 4.3-13.2 25 Eo% 0.2 % 0.0-6.6 25 Bas% 0.1 % 0.0-1.1 25 Neut# 14.05 K/uL High 1.8-7.0 25 Lymph # 1.20 K/uL 1.0-4.0 25 [place] # 1.14 K/uL High 0.3-0.9 25 Eos # 0.04 K/uL 0.0-0.5 25 Baso # 0.01 K/uL 0.0-0.1 25 Basic Metabolic Panel 12/08/2016 [...] 25 Calcium 8.4 mg/dL Low 8.5-10.1 25 Basic Metabolic Panel 12/07/2016 Glucose 145 mg/dL High 74-106 25 BUN 13 mg/dL 7-18 25 Creatinine 1.0 mg/dL 0.6-1.3 25 Glom Filtration Rate, Estimate 57 mL/min >60 25 If >60 mL/min >60 25, 28 BUN/Creat 13.0 ratio 25 Sodium 130 mmol/L Low 136-145 25 Potassium 3.3 mmol/L Low 3.5-5.1 25 Chloride 97 mmol/L Low 98-107 25 Carbon Dioxide 23 mmol/L 21-32 25 Anion Gap 10 mEq/L 8-16 25 Calcium 8.2 mg/dL Low 8.5-10.1 25 Aot Request 12/07/2016 Aot Request Test(s) added 25, 29 Tests to be added: magnesium 25 Ua Routine 12/07/2016 Urine Color YELLOW Yellow 30 Urine Clarity CLEAR Clear 30 Urine Glucose - Dipstick NEGATIVE mg/dL Negative 30 Urine Bilirubin - Dipstick NEGATIVE Negative 30 Urine Ketone 15 mg/dL High Negative 30 Urine Specific Sanders 1.025 1.010-1.030 30 Urine Blood SMALL Negative 30 Urine PH 6.0 Low 6.5-7.5 30 Urine Protein - Dipstick 30 mg/dL High Negative 30 Urine Urobilinogen - Dipstick 0.2 E.U./dL 0.2-1.0 30 Urine Nitrite - Dipstick NEGATIVE Negative 30 Urine Leuk Esterase NEGATIVE Negative 30 Urine RBC 2-5 rbc/hpf 0-2 30 Urine WBC 0-2 wbc/hpf 0-7 30 Urine Epithelial Cells MANY /lpf None Seen 30, 31 Urine Bacteria VERY FEW None Seen 30 Urine Coarse Granular Cast 0-2 #/lpf None Seen 30 Urine Mucus LARGE None Seen 30 Urine Amorph Sediment SMALL Negative 30 Source: URINE, CLEAN CAT <SEE NOTE> 30, 32 Laboratory test 12/07/2016 C. Difficile Toxin NEGATIVE FOR C. 30, 33 finding A/B <SEE NOTE> Laboratory test 12/07/2016 Magnesium 1.9 mg/dL 1.8-2.4 34 finding Urine Culture 11/14/2016 Urine Culture NO GROWTH: FINAL 35, 36 <SEE NOTE> Comprehensive 10/16/2016 Glucose 92 mg/dL 74-106 Metabolic Panel BUN 20 mg/dL High 7-18 Creatinine 1.1 mg/dL 0.6-1.3 Glom Filtration Rate, Estimate 51 mL/min >60 If >60 mL/min >60 37 BUN/Creat 18.1 ratio Sodium 140 mmol/L 136-145 [...] Cholesterol Profile 10/16/2016 Cholesterol 156 mg/dL <200 38 Triglycerides 106 mg/dL <150 39 HDL Cholesterol 57 mg/dL >40 40 LDL-Cholesterol 78 mg/dL < 100 41 Reflex add FT3? Y Reflex add FT4? Y TSH Reflex FT4 And/Or FT3 10/16/2016 Thyroid Stim Hormone 0.16 uIU/mL Low 0.30-4.20 Reflex add FT3? Y Reflex add FT4? Y Free T3 10/16/2016 Free T3 2.45 pg/mL [...] Thyroid Stim Hormone 0.08 uIU/mL Low 0.30-4.20 @[facility] Pat Id: [id number] @[facility] Req #: [id number] Reflex add FT3? Y Reflex add FT4? Y Free T3 07/16/2016 Free T3 2.52 pg/mL 2.18-3.98 @[facility] Pat Id: [id number] @[facility] Req #: [id number] Reflex add FT3? Y Reflex add FT4? Y Free T4 07/16/2016 Free T4 1.28 ng/dL 0.76-1.46 @[facility] Pat Id: [id number] @[facility] Req #: [id number] Reflex add FT3? Y Reflex add FT4? Y Laboratory test finding 04/23/2016 Thyroid Stim Hormone 0.11 uIU/mL Low 0.30-4.20 Liver Function Tests 04/23/2016 Total Protein 7.1 g/dL 6.4-8.2 Albumin 4.0 g/dL 3.4-5.0 Globulin 3.1 g/dL 1.9-4.3 Alb/Glob 1.3 ratio Bilirubin,Total 0.5 mg/dL 0.2-1.0 Bilirubin,Direct 0.1 mg/dL 0.0-0.2 Bilirubin,Indirect 0.4 mg/dL 0.0-0.9 Sgot/Ast 18 U/L 15-37 SGPT/Alt 29 U/L 12-78 Alkaline Phosphatase 73 U/L 45-117 LDL Cholesterol Profile 04/23/2016 Cholesterol 176 mg/dL 150-200 47 Triglycerides 129 mg/dL 50-150 48 HDL Cholesterol 61 mg/dL 60-150 49 LDL-Cholesterol 89 mg/dL 75-100 50 Basic Metabolic Panel 04/23/2016 Glucose 83 mg/dL 74-106 BUN 17 mg/dL 7-18 Creatinine 1.0 mg/dL 0.6-1.3 Glom Filtration Rate, Estimate 57 mL/min >60 If >60 mL/min >60 51 BUN/Creat 17.0 ratio Sodium 140 mmol/L 136-145 Potassium 3.2 mmol/L Low 3.5-5.1 Chloride 102 mmol/L 98-107 Carbon Dioxide 29 mmol/L 21-32 Anion Gap 9 mEq/L 8-16 Calcium 9.5 mg/dL 8.5-10.1 Basic Metabolic Panel 01/02/2016 Glucose 109 mg/dL High 74-106 BUN 17 mg/dL 7-18 Creatinine 0.9 mg/dL 0.6-1.3 Glom Filtration Rate, Estimate >60 mL/min >60 If >60 mL/min >60 52 BUN/Creat 18.8 ratio Sodium 138 mmol/L 136-145 Potassium 3.6 mmol/L 3.5-5.1 Chloride 102 mmol/L 98-107 Carbon Dioxide 26 mmol/L 21-32 Anion Gap 10 mEq/L 8-16 Calcium 9.7 mg/dL 8.5-10.1 Xray 10/12/2015 Shoulder Right 2+VWS <pending> Xray 10/12/2015 Chest PA & Lat 2 VWS <pending> Creatinine 10/10/2015 Creatinine 0.98 mg/dL High 0.51-0.95 Egfr Non- 55.5 >60 Egfr 71.3 >60 53 Laboratory test finding 10/10/2015 Blood Urea Nitrogen 19 mg/dL 6-24 Laboratory test finding 10/01/2015 Thyroid Stim Hormone [...] Thyroid Stim Hormone 4.07 uIU/mL High 0.36-3.74 Liver Function Tests 06/06/2015 Total Protein 7.4 g/dL 6.4-8.2 Albumin 4.0 g/dL 3.4-5.0 Globulin 3.4 g/dL 1.9-4.3 Alb/Glob 1.2 ratio Bilirubin,Total 0.4 mg/dL 0.2-1.0 Bilirubin,Direct < 0.1 mg/dL 0.0-0.2 Bilirubin,Indirect 0.3 mg/dL 0.0-0.9 Sgot/Ast 31 U/L 15-37 SGPT/Alt 56 U/L 12-78 Alkaline Phosphatase 92 U/L 45-117 LDL Cholesterol Profile 06/06/2015 Cholesterol 154 mg/dL 150-200 57 Triglycerides 170 mg/dL High 50-150 58 HDL Cholesterol 56 mg/dL Low 60-150 59 LDL-Cholesterol 64 mg/dL Low 75-100 60 Laboratory test finding 01/12/2015 Urine Culture See Note 61 Comprehensive Metabolic Panel 12/11/2014 Alb/Glob 1.7 ratio [...] 87 mg/dL 74-106 If 56 mL/min >60 62 Potassium 3.4 mmol/L Low 3.5-5.1 SGPT/Alt 30 U/L 12-78 Sgot/Ast 25 U/L 15-37 Sodium 137 mmol/L 136-145 Total Protein 5.7 g/dL Low 6.4-8.2 Laboratory test finding 12/11/2014 Bas% 0.3 % [...] 30.8-34.3 Mean Platelet Volume 9.2 fL 8.9-12.4 [place] # 0.52 K/uL 0.3-0.9 [place] % 8.3 % 4.3-13.2 Neut# 4.10 K/uL 1.0-7.0 Neut% 65.7 % 40.4-72.8 Platelet Count 233 K/uL 155-360 Red Blood Count 4.21 M/uL 3.90-5.40 Red Cell Distri Width %CV 13.7 % 11.7-14.4 Red Cell Distri Width SD 45.1 fl 3-47 Troponin-I 0.02 ng/mL 63 White Blood Count 6.3 K/uL 3.1-10.7 LDL Cholesterol Profile 11/28/2014 Cholesterol 176 mg/dL < 200 64 HDL Cholesterol 59 mg/dL > 40 65 LDL-Cholesterol 81 mg/dL < 100 66 Triglycerides 180 mg/dL < 150 67 Laboratory test finding 11/28/2014 Antinuclear Antibodies, Ifa Negative . 68 C-Reactive Protein,Quant 3.5 mg/L <3.0 Rheumatoid Factor Screen < 10.0 Iu/ml 0.0-15.0 Sedimentation Rate 19 mm/hr 0-30 TSH Reflex FT4 and/or FT3 2.29 uIU/mL 0.36-3.74 69 Uric Acid 4.5 mg/dL 2.6-6.0 CBS W/Automated [...] 30.8-34.3 Mean Platelet Volume 9.7 fL 8.9-12.4 [place] # 0.53 K/uL 0.3-0.9 [place] % 7.3 % 4.3-13.2 Neut# 4.66 K/uL [...] 89 mg/dL 74-106 If 52 mL/min >60 70 Potassium 4.1 mmol/L 3.5-5.1 SGPT/Alt 30 U/L 12-78 Sgot/Ast 19 U/L 15-37 Sodium 140 mmol/L 136-145 Total Protein 7.2 g/dL 6.4-8.2 1 Z01.[address] NIRAV PATEL AT [phone] NIRAV PATEL AT [phone] 4 N39.41 5 URINE, CLEAN CATCH 6 I10 E78.5 7 Note: Persistent reduction for 3 months or more in an eGFR <60 mL/min/1.73 m2 defines CKD. Patients with eGFR values >/=60 mL/min/1.73 m2 may also have CKD if evidence of persistent proteinuria is present. The original MDRD equation for estimated GFR is not valid for patients less than 18 years of age. Additional information may be found at [email or web address]. 8 Reference Guidelines*: Desirable: ........... < 200 mg/dL Borderline High: ..... 200-239 mg/dL High: ................ >=240 mg/dL * The National Cholesterol Education Program (NCEP) 9 Reference Guidelines*: Normal: ............. < 150 mg/dL Borderline High: .... 150-199 mg/dL High: ............... 200-499 mg/dL Very High: .......... > 500 mg/dL * Source: National Cholesterol Education Program (NCEP) 10 Reference Guidelines*: Low HDL: ..... < 40 mg/dL Normal: ..... 40-60 mg/dL Desirable: ... > 60 mg/dL *The National Cholesterol Education Program(NCEP) 11 Reference Guidelines*: Optimal:........... <100 mg/dL Near Optimal....... 100-129 mg/dL Borderline High.... 130-159 mg/dL High............... 160-189 mg/dL Very High.......... >=190 mg/dL * Source: National Cholesterol Education Program (NCEP) 12 CHEST PAIN 13 Reference Guidelines*: Desirable: [...] for more aggressive treatment of glycemia. The [place] [employer] recommends that a primary goal [...] infection is suspected. Performed at: - [facility] [address] [id number] Magician/Illusionist: La Marquez MD, Phone: [phone] 24 Values >=10.0 IU/mL are positive for [...] information may be found at [email or web address]. 28 Note: Persistent reduction for 3 months or more in an eGFR <60 mL/min/1.73 m2 defines CKD. Patients with eGFR values >/=60 mL/min/1.73 m2 may also have CKD if evidence of persistent proteinuria is present. The original MDRD equation for estimated GFR is not valid for patients less than 18 years of age. Additional information may be found at [email or web address]. 29 Tests: magnesium Instructions: 30 GALL BLADDER? SENT BY [facility] 31 POSSIBLE UROGENITAL CONTAMINATION. 32 URINE, CLEAN CATCH 33 NEGATIVE FOR C. DIFFICILE TOXIN A/B. 34 DIARRHEA, ELECTROLYTE ABNORMALITIES 35 R39.9 36 NO GROWTH: FINAL REPORT 37 Note: Persistent reduction for 3 months or more in an eGFR <60 mL/min/1.73 m2 defines CKD. Patients with eGFR values >/=60 mL/min/1.73 m2 may also have CKD if evidence of persistent proteinuria is present. The original MDRD equation for estimated GFR is not valid for patients less than 18 years of age. Additional information may be found at [email or web address]. 38 Reference Guidelines*: Desirable: ........... < 200 mg/dL Borderline High: ..... 200-239 mg/dL High: ................ >=240 mg/dL * The National Cholesterol Education Program (NCEP) 39 Reference Guidelines*: Normal: ............. < 150 mg/dL Borderline High: .... 150-199 mg/dL High: ............... 200-499 mg/dL Very High: .......... > 500 mg/dL * Source: National Cholesterol Education Program (NCEP) 40 Reference Guidelines*: Low HDL: ..... < 40 mg/dL Normal: ..... 40-60 mg/dL Desirable: ... > 60 mg/dL *The National Cholesterol Education Program(NCEP) 41 Reference Guidelines*: Optimal:........... <100 mg/dL Near Optimal....... 100-129 mg/dL Borderline High.... 130-159 mg/dL High............... 160-189 mg/dL Very High.......... >=190 mg/dL * Source: National Cholesterol Education Program (NCEP) 42 SEE RESULT BELOW Name: ANA SNIDER : [address]: Jefferson Butler MD Acct: [id number] Unit: [id number] AGE: 75 Location: [facility] Re09/07/16 SEX: F Status: DEP ER SPEC: [id number] JYOTI: 09/07/16-1545 [facility] DR: Debra Bruce NP REQ: [id number] RECD: 09/08/16 STATUS: LAWANDA WEBSTER DR: [facility] Mila Ragnel MD _ SOURCE: URINE [facility]: ORDERED: Urine Culture Procedure Result Reported Site Urine Culture Final 09/10/16- 0756 ML Organism 1 ESCHERICHIA COLI [place] Count >100,000 (Many) CFU/ML 1. ESCHERICHIA COLI [...] antibiotic reporting. * ML - [facility]) . END OF REPORT * ML=Testing performed at Main Lab DEPARTMENT OF PATHOLOGY, [address] [place] [address] Alfie Alfaro M.D. Director [facility] # [id number] 43 N39.0 44 ESCHERICHIA COLI 45 > 100,000 CFU/mL 46 10,000 - 50,000 CFU/mL 47 Reference Guidelines*: Desirable: ........... < 200 mg/dL Borderline High: ..... 200-239 mg/dL High: ................ >=240 mg/dL * The National Cholesterol Education Program (NCEP) 48 Reference Guidelines*: Normal: ............. < 150 mg/dL Borderline High: .... 150-199 mg/dL High: ............... 200-499 mg/dL Very High: .......... > 500 mg/dL * Source: National Cholesterol Education Program (NCEP) 49 Reference Guidelines*: Low HDL: ..... < 40 mg/dL Normal: ..... 40-60 mg/dL Desirable: ... > 60 mg/dL *The National Cholesterol Education Program(NCEP) 50 Reference Guidelines*: Optimal:........... <100 mg/dL Near Optimal....... 100-129 mg/dL Borderline High.... 130-159 mg/dL High............... 160-189 mg/dL Very High.......... >=190 mg/dL * Source: National Cholesterol Education Program (NCEP) 51 Note: Persistent reduction for 3 months or more in an eGFR <60 mL/min/1.73 m2 defines CKD. Patients with eGFR values >/=60 mL/min/1.73 m2 may also have CKD if evidence of persistent proteinuria is present. The original MDRD equation for estimated GFR is not valid for patients less than 18 years of age. Additional information may be found at [email or web address]. 52 Note: Persistent reduction for 3 months [...] Quantity ! 10,000 - 50,000 CFU/mL 62 Note: Persistent reduction for 3 months or more in an eGFR <60 mL/min/1.73 m2 defines CKD. Patients with eGFR values >/=60 mL/min/1.73 m2 may also have CKD if evidence of persistent proteinuria is present. The original MDRD equation for estimated GFR is not valid for patients less than 18 years of age. Additional information may be found at [email or web address]. 63 0.0 - 0.045 ng/mL: Normal 0.046 - 0.5 ng/mL: Suggestive 0.6 - 1.5 ng/mL: Consistent 64 Reference Guidelines*: Desirable: ........... < 200 mg/dL Borderline High: ..... 200-239 mg/dL High: ................ >=240 mg/dL * The National Cholesterol Education Program (NCEP) 65 Reference Guidelines*: Low HDL: ..... < 40 mg/dL Normal: ..... 40-60 mg/dL Desirable: ... > 60 mg/dL *The National Cholesterol Education Program(NCEP) 66 Reference Guidelines*: Optimal:........... <100 mg/dL Near Optimal....... 100-129 mg/dL Borderline High.... 130-159 mg/dL High............... 160-189 mg/dL Very High.......... >=190 mg/dL * Source: National Cholesterol Education Program ( NCEP) 67 Reference Guidelines*: Normal: ............. < 150 mg/dL Borderline High: .... 150-199 mg/dL High: ............... 200-499 mg/dL Very High: .......... > 500 mg/dL * Source: National Cholesterol Education Program (NCEP) 68 Negative <1:80 Borderline 1:80 Positive >1:80 Performed at: RN - [facility] [address] [id number] Magician/Illusionist: La Marquez MD, Phone: [phone] QUERY: Reflex add FT3? N QUERY: Reflex add FT4? Y 70 Note: Persistent reduction for 3 months or more in an eGFR <60 mL/min/1.73 m2 defines CKD. Patients with eGFR values >/=60 mL/min/1.73 m2 may also have CKD if evidence of persistent proteinuria is present. The original MDRD equation for estimated GFR is not valid for patients less than 18 years of age. Additional information may be found at www.kdoqi.org. Procedures Date CPT Code Description Status Comment 12/15/2017 18059 Measurement Post Voiding Completed Residual Urine By Ultrasound,Non-Imaging 11/17/2017 05926 Measurement Post Voiding Completed Residual Urine By Ultrasound,Non-Imaging 11/17/2017 96823 complex uroflowmetry electronic Completed 01/02/2016 01039 Neuroplasty median nerve at Completed carpal tunnel 12/31/2015 50251 EKG-Tracing And Report Completed 10/15/2015 63779 Nerve Conduction 7-8 Studies Completed 10/15/2015 89737 Needle Electromyography Completed Complete, Five Or More Muscles Studied 07/04/2015 Mammogram Completed birads 2Document: 07/04/15 - Digital Mammo Screen Bilat, wants stop screening 11/11/2011 90736 EKG Interpretation And Report Completed Only 02/20/201138501 Asp./Injection major joint Completed 01/22/201151736 Asp./Injection major joint Completed 11/13/2010 59593 EKG-Tracing And Report Completed 07/04/2010 65059 EKG Interpretation And Report Completed Only Encounters Type Date Location Provider CPT E/M Dx Office Visit 04/08/2018 Family Medicine SHAKA MckinnonP 05501 S93.602A 10:00a Office Visit 03/19/2018 Family Medicine Mila Rangel M.D. 25667 S40.861A 2:15p Office Visit 12/15/2017 Urology Bill Bolaños M.D. 99926 N39.41 1:15p R35.1 Office Visit 11/17/2017 1:30p Urology Bill Bolaños M.D. 24081 N39.41 Office Visit 10/23/2017 1:45p Family Brett Rangel M.D. 01349 I10 E78.5 E03.9 R32 M54.5 Office Visit 09/15/2017 11:45a Family Brett Rangel M.D. 73728 R32 Office Visit 07/23/2017 10:15a Family Brett Rangel M.D. 51415 I10 E78.5 E03.9 R32 M62.838 Office Visit 04/17/2017 10:45a Family Brett Rangel M.D. 25138 I10 E78.5 E03.9 M54.5 Office Visit 02/06/2017 1:30p Family Medicine Mila Rangel M.D. 05601 R23.2 Office Visit 01/13/2017 10:15a Family Medicine Mila Rangel M.D. 86969 I10 E78.5 E03.9 M54.5 R32 Office Visit 12/16/2016 2:30p Family Medicine Mila Rangel M.D. 43132 Z02.1 R19.7 R32 M54.5 Z11.1 Office Visit 12/02/2016 10:15a Family Medicine QUE Pedraza-BC, 64313 J01.90 MOLDER HAND, Ibclc Office Visit 10/16/2016 11:00a Family Medicine Mila Rangel M.D. 88315 I10 E78.5 E03.9 F41.9 R32 Z79.82 Office Visit 09/24/2016 1:00p Family Medicine Varun Glover MOLDER HAND 91497 Z01.818 G56.02 I25.10 Z12.31 L82.1 Office Visit 08/20/2016 11:00a Family Medicine QUE Pedraza-BC, MOLDER HAND, 41554 N39.0 Ibclc Office Visit 07/16/2016 3:45p Family Medicine Mila Rangel M.D. 27050 M79.7 E03.9 R32 Office Visit 04/23/2016 3:15p Family Medicine Jo Becker M.D. 10269 M25.511 M25.512 M54.2 E78.2 E03.9 Office Visit 02/20/2016 11:30a Family Medicine Jo Becker M.D. 09320 M25.532 M54.5 Office Visit 12/31/2015 11:00a Family Medicine Jo Becker M.D. 81641 G56.02 Z01.818 Office Visit 12/12/2015 10:30a Family Medicine Mila Rangel M.D. 94017 M25.511 Office Visit 12/04/2015 9:00a Orthopaedic Office SOFIA Posadas 17332 G56.02 Office Visit 12/04/2015 10:30a Family Medicine Jo Becker 39034 M25.511 MAnetteDAnette Office Visit 10/22/2015 1:30p Family Medicine Jo Becker, 31147 M25.511 MAnetteDAnette M54.2 Office Visit 10/01/2015 2:30p Family Medicine Jo Becker M.D. 22026 G56.02 E03.9 Office Visit 08/03/2015 10:30a Family Medicine Jo Becker M.D. 42358 E78.5 E03.9 I10 F33.2 Z23 Office Visit 06/06/2015 2:40p Family Medicine Jo Becker M.D. 82620 272.4 401.1 244.9 723.1 Office Visit 05/02/2015 10:00a Family Medicine Jo Becker M.D. 79479 723.1 781.2 V03.82 Office Visit 04/19/2015 11:30a [place] [address] 781.2 724.5 Office Visit 03/16/2015 1:00p Family Medicine Jo Becker 56146 296.33 M.D. Office Visit 03/02/2015 2:30p Family Medicine Jo Becker 62519 296.33 M.D. Office Visit 01/18/2015 2:00p Family Medicine Varun Glover, 49431 788.41 [facility] Office Visit 01/10/2015 1:30p Family Medicine Varun Glover 89953 788.41 [facility] Office Visit 02/23/2012 2:05p Cardiology Office Thien Guillermo, 97209 786.50 M.DAnette, [facility] Office Visit 11/13/2010 1:40p [facility] Thien Guillermo, 37636 414.01 M.D., [facility] 272.4 786.59 401.1 Office Visit 07/10/2010 10:00a Orthopaedic Office Alfredito Perez, 14878 840.4 M.D. 726.10 V67.09 Plan of Care Future Appointment(s):06/15/2018 10:30 am - Bill Bolaños M.D. at [id number] 1:30 pm - Mila Rangel M.D. at [facility]04/08/2018 - Varun Bahlesley, FNPS93.602A Unspecified sprain of left foot, initial encounterNew Medication:Naproxen 500 mgNew Xrays:Foot Complete 4 ViewsComments:Most likely a sprain/strain, but with TTP over the navicular area will get x-ray to rule out anything moreuse NSAID for short period of time to help with pain and what I believe is some underlying tendonitisFollow up:as schedule 04/22
[2018-05-06 16:32] VITALS: BP 117/72
--- NOTE | 2018-05-06 17:23 | ED ---
Back Pain - HPI Summary HPI Summary: 77 yr old female with the complaint of back pain. Onset of pain March 23 after she fell on a concrete stair and landed on the left side of her pelvis. She has had pain in the entire lumbar and thoracic spine since this fall and the pain radiates around the ribs into the epigastrium at times and also in the left buttocks down the left leg. She has had prior fusions in the back by Dr Giovanni Dumas in [place]. No bowel or bladder incontinence. No other complaints. - History of Current Complaint Chief Complaint: UCBackPain Stated Complaint: BACK PAIN Time Seen by Provider: 05/06/18 16:47 Hx Last Menstrual Period: years ago. Pain Intensity: 7 - Allergies/Home Medications Allergies/Adverse Reactions: Allergies Allergy/AdvReac Type Severity Reaction Status Date / Time aripiprazole [From Abilify] Allergy GI Upset Verified 05/06/18 17:21 aspirin Allergy Rash, Verified 05/06/18 17:21 throat tightness codeine Allergy Rash, Verified 05/06/18 17:21 throat swells divalproex sodium Allergy Rash, Verified 05/06/18 17:21 [From Depakote] tightness of throat hydrocodone Allergy throat Verified 05/06/18 17:21 tightness, rash oxycodone Allergy Rash, Verified 05/06/18 17:21 throat tightness Penicillins Allergy Rash, Verified 05/06/18 17:21 throat swells prednisone Allergy Rash, Verified 05/06/18 17:21 tightness of throat Sulfa (Sulfonamide Allergy Rash, Verified 05/06/18 17:21 Antibiotics) tightness of throat tetracycline Allergy GI Upset Verified 05/06/18 17:21 Home Medications: Home Medications Lisinopril/HCTZ 20/12.5(NF) [Zestoretic 20/12.5(NF)] 1 tab PO DAILY 05/06/18 [ History Confirmed 05/06/18] traZODone TAB* [Desyrel TAB*] 150 mg PO BEDTIME 05/06/18 [History Confirmed ] PMH/Surg Hx/FS Hx/Imm Hx Endocrine/Hematology History: Reports: Hx Anticoagulant Therapy, Hx Thyroid Disease Denies: Hx Diabetes Cardiovascular History: Reports: Hx Coronary Artery Disease - CHOLESTEROL CONTROL WITH MEDICATION, Hx Hypertension, Other Cardiovascular Problems/ Disorders Denies: Hx Pacemaker/ICD Respiratory History: Denies: Hx Asthma, Hx Chronic Obstructive Pulmonary Disease (COPD), Hx Lung Cancer GI History: Denies: Hx Gall Bladder Disease, Hx Gastrointestinal Bleed, Hx Ulcer, Hx Urosepsis History: Denies: Hx Kidney Stones, Hx Renal Disease Musculoskeletal History: Reports: Hx Arthritis - GENERALIZED Sensory History: Reports: Hx Contacts or Glasses - GLASSES, Hx Hearing Aid - BILATERAL Opthamlomology History: Reports: Hx Contacts or Glasses - GLASSES Neurological History: Denies: Hx Dementia, Hx Migraine, Hx Seizures, Hx Transient Ischemic Attacks (TIA) Psychiatric History: Reports: Hx Anxiety - ON MEDICATION, Hx Depression Denies: Hx Panic Disorder - Cancer History Cancer Type, Location and Year: CERVICAL CA - Surgical History Surgery Procedure, Year, and Place: TONSILECTOMY, APPENDECTOMY,HYSTERECTOMY, HEMMORIDECTOMY,ROTATOR CUFF REPAIR,LT KNEE ARTHROSCOPIC,LSP FUSION 2011; b/l carpal tunnel x 5 total Hx Anesthesia Reactions: Yes - WITH ONE SURGERY - TOOK LONGER TO WAKE UP Infectious Disease History: No Infectious Disease History: Denies: Hx Clostridium Difficile, Hx Hepatitis, Hx Human Immunodeficiency Virus (HIV), Hx of Known/Suspected MRSA, Hx Shingles, Hx Tuberculosis, Hx Known/ Suspected VRE, Hx Known/Suspected VRSA, History Other Infectious Disease, Traveled Outside the [place] in Last 30 Days - Family History Known Family History: Positive: Cardiac Disease, Hypertension, Diabetes, Other - FMH of cholecystitis - Social History Alcohol Use: None Substance Use Type: Reports: None Smoking Status (MU): Never Smoked Tobacco Have You Smoked in the Last Year: No Review of Systems Constitutional: Negative Positive: Other - back pain All Other Systems Reviewed And Are Negative: Yes Physical Exam Triage Information Reviewed: Yes Vital Signs On Initial Exam: Initial Vitals Temp Pulse Resp BP Pulse Ox 98.4 F 70 18 117/72 98 05/06/18 16:15 05/06/18 16:15 05/06/18 16:15 05/06/18 16:15 05/06/18 16:15 Vital Signs Reviewed: Yes Appearance: Positive: Well-Appearing, No Pain Distress Skin: Positive: Warm, Skin Color Reflects Adequate Perfusion Head/Face: Positive: Normal Head/Face Inspection Eyes: Positive: EOMI ENT: Positive: Normal ENT inspection Neck: Positive: Supple, Nontender Respiratory/Lung Sounds: Positive: Clear to Auscultation, Breath Sounds Present Cardiovascular: Positive: RRR. Negative: Murmur Abdomen Description: Positive: Nontender Musculoskeletal: Positive: Strength/ROM Intact, Other - diffuse tender thoracic and lumbar spine, no step off Neurological: Positive: Sensory/Motor Intact, Alert, Oriented to Person Place, Time, CN Intact II-III Psychiatric: Positive: Normal - [place] Coma Scale Best Eye Response: 4 - Spontaneous Best Motor Response: 6 - Obeys Commands Best Verbal Response: 5 - Oriented Coma Scale Total: 15 Diagnostics - Vital Signs Vital Signs Temp Pulse Resp BP Pulse Ox 05/06/18 16:15 98.4 F 70 18 117/72 98 - Laboratory Lab Results: Lab Results 05/06/18 Range/Units 16:57 POC Urine Color Yellow POC Urine Clarity Clear POC Urine pH 6.0 (5-9) POC Ur Specif [place] 1.015 (1.010-1.030) POC Urine Protein Negative (Negative) POC Ur Glucose (UA) Negative (Negative) POC Urine Ketones Negative (Negative) POC Urine Blood Negative (Negative) POC Urine Nitrite Negative (Negative) POC Urine Bilirubin Negative (Negative) POC Urine Urobilinogen 0.2 (Negative) POC U Leukocyte Esteras Trace A (Negative) Lab Statement: Any lab studies that have been ordered have been reviewed, and results considered in the medical decision making process. - Radiology chest xray, thoracic, and lumbar sacral Xray Interpretation: Positive (See Comments) - Grade 1 anterior spondolysthesis L3/4 L4/5 level. Status post fusion. No acute fractures. Radiology Interpretation Completed By: Radiologist Back Pain Course/Dx - Course Course Of Treatment: 77 yr old with no acute finding on xrays. She will follow up with Dr Giovanni Dumas in [place] her spine surgeon. - Diagnoses Provider Diagnoses: Back pain Discharge - Sign-Out/Discharge Documenting (check all that apply): Patient Departure - Discharge Plan Condition: Good Disposition: HOME Patient Education Materials: Back Pain (ED) Referrals: No Primary Care Phys,NOPCP [Primary Care Provider] - Alesia YU,Giovanni De La Rosa [Medical Doctor] - 1 Day - Billing Disposition and Condition Condition: GOOD Disposition: Home
--- NOTE | 2018-05-06 17:37 | RAD ---
INDICATION: Rib pain after fall. COMPARISON: Comparison is made with a prior chest x-ray study from October 21, 2015. TECHNIQUE: Dual-energy PA and lateral views of the chest were obtained. FINDINGS: The heart is within normal limits in size. Mediastinal and hilar contours appear within normal limits. The lungs are clear. No pleural effusion or pneumothorax is seen. No fracture is appreciated. Note is made of dorsal column stimulator leads which project over the mid to lower dorsal spine. IMPRESSION: NO EVIDENCE FOR ACTIVE CARDIOPULMONARY DISEASE.
--- NOTE | 2018-05-06 17:41 | RAD ---
INDICATION: Trauma, low back pain. COMPARISON: There are no prior studies available for comparison. TECHNIQUE: 5 views of the lumbar spine were obtained including lateral, oblique, AP and a coned-down lateral view of the lumbar sacral junction. FINDINGS: There is a mild lumbar scoliosis convex toward the right side. There is mild grade 1 anterior spondylolisthesis at the L3-L4 and L4-L5 levels. The patient is status post posterior spinal fusion at the L3-L4 level with pedicle screws. No fracture is seen. There is moderate to severe degenerative disc disease at the L2-L3, L3-L4, L4-L5 and L5-S1 levels. IMPRESSION: 1. NO EVIDENCE FOR ACUTE FRACTURE. 2. STATUS POST POSTERIOR SPINAL FUSION AT THE L3-L4 LEVEL. 3. MILD GRADE 1 ANTERIOR SPONDYLOLISTHESIS AT THE L3-L4 AND L4-L5 LEVELS.
--- NOTE | 2018-05-06 17:43 | RAD ---
INDICATION: Trauma. COMPARISON: Correlation is made with a prior lateral chest x-ray study from October 21, 2015. TECHNIQUE: AP and lateral films of the dorsal spine were obtained. FINDINGS: There is a mild dorsal scoliosis convex toward the right side. The vertebra are otherwise in normal alignment. No fracture is seen. There is mild to moderate diffuse degenerative disc disease. IMPRESSION: NO EVIDENCE FOR FRACTURE.
== END 2018-05-06 17:55 | disposition home or self-care (01) ==
LOC: UCCORT 15:09
DX: M54.5 Low back pain (principal); M54.6 Pain in thoracic spine; R07.81 Pleurodynia; R10.13 Epigastric pain; M79.605 Pain in left leg; I10 Essential (primary) hypertension; Z88.8 Allergy status to other drugs, medicaments and biological substances; Z88.6 Allergy status to analgesic agent; Z88.5 Allergy status to narcotic agent; Z88.0 Allergy status to penicillin; Z88.2 Allergy status to sulfonamides; Z88.1 Allergy status to other antibiotic agents; Z98.1 Arthrodesis status
CPT/HCPCS: 71046; 72070; 72110; 81003; 87077; 87086; 99212; G0463